=== PATIENT | female | born 1930 | race Caucasian/White ===

== ENCOUNTER 2016-06-07 12:58 | Inpatient (IN) | payer OTHER ==
[~2016-06-07] VITALS: Ht 149.9 cm; Wt 71.4 kg
[~2016-06-07 12:58] MED LIST: ALLO300T2 PO; ASCO-63 PO; ASPI81TA28 PO; ATEN-173 PO; ATOR-26 PO; CALC1CAP36 PO; CHOL100027 PO; CITA20TA4 PO; CLOP1TAB15 PO; FENT25DI2 TD; FERR325T51 PO; FURO80TA63 PO; GABA1CAP5 PO; ISOS60TA25 PO; LEVO50TA PO; LISI10TA PO; MAGN400T6 PO; METO25TA3 PO; OMEP40CA PO; SENNTAB23 PO
[2016-06-07] MEDS ORDERED: ALBUT/IPRATROP 3MG/0.5MG NEB 3 ML VIAL INH STA (13:30)
[2016-06-07] MEDS ORDERED: VNTHFA/IN INH (13:55)
[2016-06-07] MEDS ORDERED: DRGTP12 TD (13:55)
[2016-06-07] MEDS ORDERED: FNTTP25 TD (13:55)
[2016-06-07] MEDS ORDERED: FERR1TAB23 PO (13:55)
--- NOTE | 2016-06-07 14:23 | DIAGNOSTIC IMAGING REPORT ---
CHEST ONE VIEW PORTABLE CLINICAL HISTORY: Sepsis COMPARISON STUDY: 01/17/2015 FINDINGS: The heart is enlarged. There is no failure. There is no focal pulmonary consolidation. No significant pleural effusions are visualized.[ There is minor basilar atelectasis. IMPRESSION: Cardiomegaly. No acute findings. Electronically signed by: Shad Shen M.D. 06/07/2016 2:21 PM Dictated Date/Time: 06/07/2016 2:20 PM
[2016-06-07 14:29] LABS: BASO % 0.1 %; BASO ABS # 0.01 K/uL (0-0.2); COMPLETE YES; EOS % 0.1 %; HEMATOCRIT 28.3 % (37-47); IG% 0.4 %; LYMPH % 5.7 %; LYMPH ABS # 0.95 K/uL (1.2-3.4); MEAN CELL VOLUME 96.9 fL (80-100); MEAN CORPUSCULAR HEMOGLOBIN 32.9 pg (25-34); MEAN CORPUSCULAR HGB CONC 33.9 g/dl (32-36); MEAN PLATELET VOLUME 10.7 fL (7.4-10.4); MONO % 2.8 %; NEUT % 90.9 %; PLATELET COUNT 208 K/uL (130-400); RED BLOOD COUNT 2.92 M/uL (4.2-5.4); WHITE BLOOD COUNT 16.61 K/uL (4.8-10.8)
[2016-06-07 14:38] LABS: INR 1.1 (0.9-1.1); PROTHROMBIN TIME (PATIENT) 11.4 SECONDS (9.0-12.0)
[2016-06-07 14:55] LABS: ALB/GLOB RATIO 0.8 (0.9-2); ALKALINE PHOSPHATASE 75 U/L (45-117); ALT/SGPT 57 U/L (12-78); BLOOD UREA NITROGEN 68 mg/dl (7-18); CALCIUM 8.5 mg/dl (8.5-10.1); CARBON DIOXIDE 28 mmol/L (21-32); CHLORIDE 93 mmol/L (98-107); GLUCOSE 134 mg/dl (70-99); SODIUM 133 mmol/L (136-145)
[2016-06-07] MEDS ORDERED: HEPARIN IV LOW DOSE NO BOLUS STA ×2 (15:29→21:54)
[2016-06-07] MEDS ORDERED: HEPARIN 25000 UNIT/500 ML D5W ONE (15:53)
[2016-06-07] MEDS ORDERED: POLYETHYLENE (MIRALAX) 17 GM PACK PO PRN (16:00)
[2016-06-07] MEDS ORDERED: ONDANSETRON INJ 2 MG/ML 2 ML VIAL IV PRN (16:00)
[2016-06-07] MEDS ORDERED: NITROGLYCERIN 0.4 MG SL PER TAB CHARGE SL PRN (16:00)
[2016-06-07] MEDS ORDERED: OMEP40CA41 PO (16:50)
[2016-06-07] MEDS: FENTANYL PATCH REMOVE & WASTE SCH ×2 (16:59)
[2016-06-07 17:02] VITALS: BP 140/83; PULSE 71; TEMP 36.9; O2SAT 99; Ht 149.9 cm; Wt 71.4 kg
[2016-06-07] MEDS ORDERED: ASPIRIN 81 MG CHEW PO STA (17:12)
--- NOTE | 2016-06-07 17:24 | History and Physical ---
History & Physical Date & Time of Service: Jun 07, 2016 at 16:41 Chief Complaint: cough Primary Care Physician: Tom Pierce D.O. History of Present Illness Source: patient, family (son in law at bedside), clinic records, hospital records This is an 85 year old female with PMH of CAD s/p stents, chronic systolic CHF, chronic oxygen use, HTN, CKD, and other problems listed below who was sent to the ED for productive cough with hypoxia. Pt has been ill for 2 weeks with "deep " cough productive of white sputum. Pt has associated sore throat and mild SOB. Reports improvement after neb treatment in clinic and ER today. Had central non- radiating chest pain several days ago at night which she attributes to coughing. No chest pain today. Pt was seen by Dr. Tom Pierce today and noted to have oxygen sat in 80s and was sent to the ER. Pt is on home oxygen 1 liter during sleep. Pt also has recent ambulatory dysfunction with multiple recent falls. Has chronic right hip pain. No fevers, chills diaphoresis, dizziness, rhinorrhea, ear ache, MAYER, palpitations, abdominal pain, nausea, vomiting, diarrhea, urinary changes, edema, weight gain, calf pain, abnormal bleeding. Had a sick contact with cough at [employer]. No recent med changes, antibiotics, hospitalizations. No hx of lung disease. Pt follows with Marino Calhoun for cardiology. Past Medical/Surgical History Medical Problems: (1) SOPHIA inhibitor intolerance Status: Chronic (2) Anemia Status: Chronic (3) Anemia Status: Chronic (4) CAD (coronary artery disease) Permanent Comment: 04/2005 - SEBAS -> proximal LAD, BMS x 2 -> distal LAD 08/2005 cath - occluded mid LAD stent, 40% ostial left circumflex, total RCA occlusion 12/2014 NSTEMI, cardiac cath at [place]- proximal RCA and LAD occlusions with collateral flow from circumflex, severe left main coronary disease with a 60% proximal calcified lesion and a 40% stenosis distally. The 5 Fr diagnostic catheter dampened upon engagement of the vessel. Attempt to IVUS the left main was notable for the IVUS catheter unable to be inserted past the proximal lesion. The circumflex was described as a large vessel with moderate disease in the proximal segment 50%. Was felt not to be candidate for CABG and PCI felt to be very high risk. Medical management recommended. Status: Chronic (5) Carotid stenosis Status: Chronic (6) Chronic pain Status: Chronic (7) Chronic systolic CHF (congestive heart failure) Status: Chronic (8) CKD (chronic kidney disease), stage III Status: Chronic (9) Dyslipidemia Status: Chronic (10) Gout Status: Chronic (11) H/O echocardiogram Permanent Comment: 2010 - EF 56%, grade I diastolic dysfunction, mild aortic valve sclerosis, mild mitral regurgitation Status: Chronic (12) History of breast cancer Permanent Comment: left lymph node dissection Status: Chronic (13) HTN (hypertension) Status: Chronic (14) Hypothyroidism Status: Chronic (15) NSTEMI (non-ST elevated myocardial infarction) Status: Resolved (16) Spinal stenosis Status: Chronic Surgical Problems: (1) H/O total knee replacement Permanent Comment: BL Status: Chronic (2) History of appendectomy Status: Chronic (3) History of total hip replacement Permanent Comment: Right Status: Chronic (4) Hx of cataract surgery Status: Chronic (5) Status post carotid surgery Permanent Comment: carotid stent placement Status: Chronic Social History Problems: (1) H/O coronary artery balloon dilation Status: Chronic Family History FH: cancer FH: heart disease Hypertension Social History Smoking Status: Never Smoker Alcohol Use: occasionally Marital Status: Housing status: lives with family ( who is demented, daughter, and son- in-law) Occupational Status: retired Immunizations History of Influenza Vaccine: Yes Influenza Vaccine Date: Nov 01, 2014 History of Tetanus Vaccine?: Yes Tetanus Immunization Date: Nov 28, 2011 History of Pneumococcal: Yes Pneumococcal Date: Nov 10, 2014 History of Hepatitis B Vaccine: No Multi-Drug Resistant Organisms History of MDRO: No Allergies Coded Allergies: Iodinated Diagnostic Agents (Verified Allergy, Intermediate, "passed out" & stage three kidney disease, 01/16/15) Codeine (Verified Adverse Reaction, Mild, "KNOCKS ME OUT", 05/16/13) Home Medications Scheduled Allopurinol (Zyloprim), 300 MG PO DAILY Aspirin (Aspirin Ec), 81 MG PO DAILY Atorvastatin (Lipitor), 80 MG PO DAILY Calcitriol (Calcitriol), 1 CAP PO QD Cholecalciferol (Vitamin D 1000 Unit), 2,000 INTER.UNIT PO DAILY Citalopram Hydrobromide (Citalopram Hydrobromide), 30 TAB PO DAILY Clopidogrel (Plavix), 75 MG PO DAILY Fentanyl (Fentanyl), 12 MCG TD CQ72HR Fentanyl (Fentanyl), 25 MCG TD CQ72HR Ferrous Sulfate (Iron), 1 TAB PO QD Furosemide (Lasix), 1 TAB PO BID Gabapentin (Neurontin), 400 MG PO TID Isosorbide Mononitrate Ext Rel (Imdur Ext Rel), 30 MG PO QAM Levothyroxine Sodium (Synthroid), 50 MCG PO DAILY Magnesium Oxide (Mag-Ox), 400 MG PO // Metoprolol Succ (Toprol Xl) (Toprol-Xl), 25 MG PO DAILY Omeprazole (Prilosec), 40 MG PO DAILY Scheduled PRN Albuterol Hfa (Ventolin Hfa), 2 PUFF INH BID PRN for SOB/Wheezing Review of Systems Ten point ROS performed with pertinent positives and negatives noted in HPI. Physical Exam Vital Signs Date Time Temp Pulse Resp B/P Pulse Ox O2 Delivery O2 Flow Rate FiO2 06/07/16 16:22 70 146/88 98 Nasal Cannula 2.0 06/07/16 15:13 70 20 134/76 97 Nasal Cannula 2.0 06/07/16 14:38 68 18 149/77 96 Room Air 06/07/16 13:20 70 06/07/16 13:11 Nasal Cannula 2.0 95 06/07/16 13:04 86 Room Air 06/07/16 13:00 36.9 74 18 130/79 86 Room Air General Appearance: WD/WN, no apparent distress, + obese, + pertinent finding ( pleasant alert 85 year old female, not in distress, and son-in-law at bedside) Head: normocephalic, atraumatic Eyes: normal inspection, PERRL, sclerae normal ENT: normal ENT inspection, hearing grossly normal, TMs normal, pharynx normal , + pertinent finding (no sinus tenderness) Neck: supple, no JVD, trachea midline Respiratory/Chest: no respiratory distress, no accessory muscle use, + rhonchi (diffuse rhonchi), + pertinent finding (no wheezing) Cardiovascular: regular rate, rhythm, no murmur Abdomen/GI: normal bowel sounds, soft Extremities/Musculoskelatal: no calf tenderness, no pedal edema, + pertinent finding (no pain on ROM of right hip) Neurologic/Psych: alert, normal mood/affect, oriented x 3, + pertinent finding (grossly nonfocal) Skin: normal color, warm/dry Diagnostics Laboratory Results Results Past 24 Hours Test 06/07/16 14:05 06/07/16 14:34 06/07/16 15:47 Range/Units White Blood Count 16.61 4.8-10.8 K/uL Red Blood Count 2.92 4.2-5.4 M/uL Hemoglobin 9.6 12.0-16.0 g/dL Hematocrit 28.3 37-47 % Mean Corpuscular Volume 96.9 80-100 fL Mean Corpuscular Hemoglobin 32.9 25-34 pg Mean Corpuscular Hemoglobin Concent 33.9 32-36 g/dl Platelet Count 208 130-400 K/uL Mean Platelet Volume 10.7 7.4-10.4 fL Neutrophils (%) (Auto) 90.9 % Lymphocytes (%) (Auto) 5.7 % Monocytes (%) (Auto) 2.8 % Eosinophils (%) (Auto) 0.1 % Basophils (%) (Auto) 0.1 % Neutrophils # (Auto) 15.11 1.4-6.5 K/uL Lymphocytes # (Auto) 0.95 1.2-3.4 K/uL Monocytes # (Auto) 0.46 0.11-0.59 K/uL Eosinophils # (Auto) 0.02 0-0.5 K/uL Basophils # (Auto) 0.01 0-0.2 K/uL RDW Standard Deviation 53.3 36.4-46.3 fL RDW Coefficient of Variation 14.9 11.5-14.5 % Immature Granulocyte % (Auto) 0.4 % Immature Granulocyte # (Auto) 0.06 0.00-0.02 K/uL Prothrombin Time 11.4 9.0-12.0 SECONDS Prothromb Time International Ratio 1.1 0.9-1.1 Activated Partial Thromboplast Time 27.0 21.0-31.0 SECONDS Partial Thromboplastin Ratio 1.0 Sodium Level 133 136-145 mmol/L Potassium Level 4.1 3.5-5.1 mmol/L Chloride Level 93 98-107 mmol/L Carbon Dioxide Level 28 21-32 mmol/L Anion Gap 12.0 3-11 mmol/L Blood Urea Nitrogen 68 7-18 mg/dl Creatinine 2.50 0.60-1.20 mg/dl Est Creatinine Clear Calc Drug Dose 14.3 ml/min Estimated GFR () 19.6 Estimated GFR (Non- 17.0 BUN/Creatinine Ratio 27.0 10-20 Random Glucose 134 70-99 mg/dl Calcium Level 8.5 8.5-10.1 mg/dl Total Bilirubin 0.4 0.2-1 mg/dl Aspartate Amino Transf (AST/SGOT) 15-37 U/L Alanine Aminotransferase (ALT/SGPT) 57 12-78 U/L Alkaline Phosphatase 75 45-117 U/L Pro-B-Type Natriuretic Peptide > 08079 0-1800 pg/ml Total Protein 6.8 6.4-8.2 gm/dl Albumin 3.0 3.4-5.0 gm/dl Globulin 3.8 2.5-4.0 gm/dl Albumin/Globulin Ratio 0.8 0.9-2 Influenza Type A Antigen Neg for Influ A NEG Influenza Type B Antigen Neg for Influ B NEG Microbiology Results 06/07/16 Blood Culture, Received Pending 06/07/16 Blood Culture, Received Pending Diagnostic Radiology CHEST ONE VIEW PORTABLE CLINICAL HISTORY: Sepsis COMPARISON STUDY: 01/17/2015 FINDINGS: The heart is enlarged. There is no failure. There is no focal pulmonary consolidation. No significant pleural effusions are visualized.[ There is minor basilar atelectasis. IMPRESSION: Cardiomegaly. No acute findings. EKG EKG 13:13- NSR, 69 bpm, RBBB, ST depression in I and aVL, ST elevation in III, T wave inversion in III, aVF, V2-V5 EKG 15:13- NSR, 69 bpm, same findings as earlier EKG Impression Assessment and Plan NSTEMI Known history of CAD s/p stenting; details noted in above PMH Last catheterization at [facility] [place] in [place]- had multivessel disease, was poor candidate for CABG and PCI felt to be very high risk, medical management recommended POC troponin 19.96 EKG- new ST depression in I and aVL, ST elevation in III, T wave inversion in III, aVF, V2-V5 Currently chest pain free Trend serial cardiac enzymes Consult cardiology; ER discussed case with customer service sales consultant flyer builder Dr. Fofana; patient started on heparin drip Give aspirin 325 mg PO stat Continue isosorbide, beta josefa, statin, Plavix SOPHIA-I intolerance as per records PRODUCTIVE COUGH With acute on chronic hypoxia; desaturated to 80s on RA in clinic and ER, (uses 2L HS at home) Possible acute bronchitis CXR- cardiomegaly, no infiltrate Afebrile; + leukocytosis 16K; HR and BP stable Will start on empiric Azithromycin Influenza antigen negative -> check influenza PCR Blood cultures pending Check sputum culture Neb treatments; flutter valve Continue supplemental O2 per protocol GURPREET ON CKD STAGE III Creat is 2.5 from baseline 1.5 Hold furosemide Monitor renal function CHRONIC SYSTOLIC CHF EF 30-34% on TTE Dec 2014 Appears euvolemic CXR- no evidence of failure Furosemide on hold for GURPREET CHRONIC ANEMIA Hg is 9.6; baseline 9's-11's Denies bleeding Monitor H/H HYPERTENSION BP is stable Continue metoprolol CHRONIC PAIN Continue Fentanyl patch and PRN hydrocodone-acetaminophen HYPOTHYROIDISM Continue levothyroxine AMBULATORY DYSFUNCTION Consult PT/ OT DVT PROPHYLAXIS On Heparin drip CODE STATUS Full code per my discussion with the patient DISPOSITION Patient lives at home under the care of daughter and son-in-law (discussed with him at bedside). Follows with Dr. Tom Pierce for primary care and Marino Calhoun PA-C for cardiology. Patient seen in collaboration with Dr. Barragan. Please see her addendum. I have seen and examined the patient and have discussed the case in detail with the provider above. I agree with the assessment and plan as stated. Yung, DO Level of Care Telemetry Resuscitation Status FULL RESUSCITATION VTE Prophylaxis VTE Risk Assessment Done? Y/N: Yes Risk Level: Moderate Given or contraindicated: Other Anticoagulation
[2016-06-07] MEDS ORDERED: AZITHROMYCIN IV 500 MG in DEXTROSE 5% 250ML 250 ML IV SCH (17:30)
[2016-06-07] MEDS: FENTANYL 12 MCG/HR TDSY TD SCH (18:11)
[2016-06-07] MEDS: FENTANYL 25 MCG/HR TDSY TD SCH (18:12)
--- NOTE | 2016-06-07 18:45 | EMERGENCY ROOM VISIT NOTE ---
History Report prepared by Rosa Isela: Jyoti Cole Under the Supervision of: Dr. Yung Arnett M.D. First contact with patient: 13:18 Chief Complaint: CONGESTION Stated Complaint: PNEUMONIA Nursing Triage Summary: Pt states, "I have a bad chest cold." Son in law states seen at Dr. Pierce's ofc and had neb, sat was 80% at the ofc., 90% after neb with deep breathing. Pt reports pain to right side of body. Sx began two weeks ago. History of Present Illness The patient is an 85 year old female who presents to the Emergency Room with complaints of a persistent cough and congestion for the past 2 weeks. Her cough is occasionally productive with yellow sputum. She denies any fevers. The patient admits to some intermittent shortness of breath, especially when her cough gets bad. The patient's family reports she has been falling recently and she admits she feels weak in her right leg. She denies any current chest pain but states she experienced some chest pain last week, which she thinks was from all the coughing she has been doing. She does use Oxygen at home, but cannot remember how much she uses. Her son-in law believes she uses Oxygen mainly when she sleeps or "watches TV". The patient saw her doctor, Dr. Pierce, last week and her Oxygen saturation was 80% before a nebulizer treatment, then 90% after the nebulizer. She saw another doctor this morning at the [facility] weekend clinic and her Oxygen was around 86%, so she had another nebulizer treatment, which provided minimal relief. The patient has a history of heart failure but her family states she is not a candidate for surgery. The patient also denies any recent leg pain or swelling. 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 A total of 10 systems reviewed and were otherwise negative. Past Medical & Surgical Medical Problems: (1) SOPHIA inhibitor intolerance (2) Anemia (3) Anemia (4) CAD (coronary artery disease) (5) Carotid stenosis (6) Chronic pain (7) Chronic systolic CHF (congestive heart failure) (8) CKD (chronic kidney disease), stage III (9) Dyslipidemia (10) Gout (11) H/O echocardiogram (12) History of breast cancer (13) HTN (hypertension) (14) Hypothyroidism (15) NSTEMI (non-ST elevated myocardial infarction) (16) Spinal stenosis Surgical Problems: (1) H/O total knee replacement (2) History of appendectomy (3) History of total hip replacement (4) Hx of cataract surgery (5) Status post carotid surgery Social History Problems: (1) H/O coronary artery balloon dilation Family History FH: cancer FH: heart disease Hypertension Social History Smoking Status: Never Smoker Alcohol Use: none Drug Use: none Marital Status: Housing Status: lives with family Occupation Status: retired Current/Historical Medications Scheduled Allopurinol (Zyloprim), 300 MG PO DAILY Aspirin (Aspirin Ec), 81 MG PO DAILY Atorvastatin (Lipitor), 80 MG PO DAILY Calcitriol (Calcitriol), 1 CAP PO QD Cholecalciferol (Vitamin D 1000 Unit), 2,000 INTER.UNIT PO DAILY Citalopram Hydrobromide (Citalopram Hydrobromide), 30 TAB PO DAILY Clopidogrel (Plavix), 75 MG PO DAILY Fentanyl (Fentanyl), 12 MCG TD CQ72HR Fentanyl (Fentanyl), 25 MCG TD CQ72HR Ferrous Sulfate (Iron), 1 TAB PO QD Furosemide (Lasix), 1 TAB PO BID Gabapentin (Neurontin), 400 MG PO TID Isosorbide Mononitrate Ext Rel (Imdur Ext Rel), 30 MG PO QAM Levothyroxine Sodium (Synthroid), 50 MCG PO DAILY Magnesium Oxide (Mag-Ox), 400 MG PO // Metoprolol Succ (Toprol Xl) (Toprol-Xl), 25 MG PO DAILY Omeprazole (Prilosec), 40 MG PO DAILY Scheduled PRN Albuterol Hfa (Ventolin Hfa), 2 PUFF INH BID PRN for SOB/Wheezing Allergies Coded Allergies: Iodinated Diagnostic Agents (Verified Allergy, Intermediate, "passed out" & stage three kidney disease, 01/16/15) Codeine (Verified Adverse Reaction, Mild, "KNOCKS ME OUT", 05/16/13) Physical Exam Vital Signs Date Time Temp Pulse Resp B/P Pulse Ox O2 Delivery O2 Flow Rate FiO2 06/07/16 15:13 70 20 134/76 97 Nasal Cannula 2.0 06/07/16 14:38 68 18 149/77 96 Room Air 06/07/16 13:20 70 06/07/16 13:11 Nasal Cannula 2.0 95 06/07/16 13:04 86 Room Air 06/07/16 13:00 36.9 74 18 130/79 86 Room Air Physical Exam Constitutional: Vital signs reviewed. Eyes: Pupils are equal round reactive to light. Conjunctiva are noninjected. ENT: Pharynx is clear without erythema or exudate. Mucous membranes are moist. Neck supple without meningeal signs. Respiratory: Diffuse rhonchi. Breath sounds are equal bilaterally. Cardiovascular: Regular rate and rhythm. No rubs or gallops. GI: Soft, nondistended and nontender. Bowel sounds are present. Musculoskeletal: No peripheral edema. No lower extremity tenderness. Integumentary: No cyanosis. Neurological: The patient is awake and alert. Cranial nerves II-XII are intact. Motor is 5 out of 5 all extremities. Sensation is intact to light touch all extremities. Normal speech. Psychiatric: Normal affect. Medical Decision & Procedures ER Provider Diagnostic Interpretation: This X-Ray was reviewed and interpreted by myself and the radiologist. CHEST ONE VIEW PORTABLE CLINICAL HISTORY: Sepsis COMPARISON STUDY: 01/17/2015 FINDINGS: The heart is enlarged. There is no failure. There is no focal pulmonary consolidation. No significant pleural effusions are visualized.[ There is minor basilar atelectasis. IMPRESSION: Cardiomegaly. No acute findings. Electronically signed by: Shad Shen M.D. 06/07/2016 2:21 PM Laboratory Results 06/07/16 14:05 Red Blood Count 2.92, Mean Corpuscular Volume 96.9, Mean Corpuscular Hemoglobin 32.9, Mean Corpuscular Hemoglobin Concent 33.9, Mean Platelet Volume 10.7, Neutrophils (%) (Auto) 90.9, Lymphocytes (%) (Auto) 5.7, Monocytes (%) (Auto) 2.8, Eosinophils (%) (Auto) 0.1, Basophils (%) (Auto) 0.1, Neutrophils # (Auto) 15.11, Lymphocytes # (Auto) 0.95, Monocytes # (Auto) 0.46, Eosinophils # (Auto) 0.02, Basophils # (Auto) 0.01 06/07/16 14:05 06/07/16 15:47 Test 06/07/16 14:05 06/07/16 14:34 White Blood Count 16.61 K/uL (4.8-10.8) Red Blood Count 2.92 M/uL (4.2-5.4) Hemoglobin 9.6 g/dL (12.0-16.0) Hematocrit 28.3 % (37-47) Mean Corpuscular Volume 96.9 fL (80-100) Mean Corpuscular Hemoglobin 32.9 pg (25-34) Mean Corpuscular Hemoglobin Concent 33.9 g/dl (32-36) Platelet Count 208 K/uL (130-400) Mean Platelet Volume 10.7 fL (7.4-10.4) Neutrophils (%) (Auto) 90.9 % Lymphocytes (%) (Auto) 5.7 % Monocytes (%) (Auto) 2.8 % Eosinophils (%) (Auto) 0.1 % Basophils (%) (Auto) 0.1 % Neutrophils # (Auto) 15.11 K/uL (1.4-6.5) Lymphocytes # (Auto) 0.95 K/uL (1.2-3.4) Monocytes # (Auto) 0.46 K/uL (0.11-0.59) Eosinophils # (Auto) 0.02 K/uL (0-0.5) Basophils # (Auto) 0.01 K/uL (0-0.2) RDW Standard Deviation 53.3 fL (36.4-46.3) RDW Coefficient of Variation 14.9 % (11.5-14.5) Immature Granulocyte % (Auto) 0.4 % Immature Granulocyte # (Auto) 0.06 K/uL (0.00-0.02) Prothrombin Time 11.4 SECONDS (9.0-12.0) Prothromb Time International Ratio 1.1 (0.9-1.1) Activated Partial Thromboplast Time 27.0 SECONDS (21.0-31.0) Partial Thromboplastin Ratio 1.0 Anion Gap 12.0 mmol/L (3-11) Est Creatinine Clear Calc Drug Dose 14.3 ml/min Estimated GFR () 19.6 Estimated GFR (Non- 17.0 BUN/Creatinine Ratio 27.0 (10-20) Calcium Level 8.5 mg/dl (8.5-10.1) Total Bilirubin 0.4 mg/dl (0.2-1) Aspartate Amino Transf (AST/SGOT) U/L (15-37) Alanine Aminotransferase (ALT/SGPT) 57 U/L (12-78) Alkaline Phosphatase 75 U/L (45-117) Pro-B-Type Natriuretic Peptide > 55104 pg/ml (0-1800) Total Protein 6.8 gm/dl (6.4-8.2) Albumin 3.0 gm/dl (3.4-5.0) Globulin 3.8 gm/dl (2.5-4.0) Albumin/Globulin Ratio 0.8 (0.9-2) Influenza Type A Antigen Neg for Influ A (NEG) Influenza Type B Antigen Neg for Influ B (NEG) Laboratory results as reviewed by me. Medications Administered Medications (Trade) Dose Ordered Sig/Jeferson Route Start Time Stop Time Status Last Admin Dose Admin Albuterol/ Ipratropium (Duoneb) 3 ml NOW STAT INH 06/07/16 13:30 06/07/16 13:32 DC 06/07/16 14:37 3 ML Heparin Sodium/ Dextrose (Heparin 25,000 Unit/500ml D5W) 25,000 unit STK-MED ONCE .ROUTE 06/07/16 15:53 06/07/16 15:54 DC 06/07/16 16:00 25,000 UNIT ECG Indication: SOB/dyspnea Rate (beats per minute): 69 Rhythm: normal sinus (normal sinus rhythm) Findings: RBBB, ST depression (ST depressions in lead 1 and AVL), T-wave inversion (T-wave inversions), ST elevation (Slight ST elevation in lead 3 only) Change: 2nd EKG performed on June 07, 2016: Indication: Elevated Troponin. Normal sinus rhythm, rate of 69, persistent RBBB with T-wave inversions from V1 to V4. ST depressions in lead [address] elevation in lead 3 only, no change from earlier EKG. ED Course 1320: The patient was evaluated in room B11. A complete history and physical exam was performed. 1330: DuoNeb 3 ml INH. 1510: I was informed by a nurse that the patients POC Troponin is 19. 1515: I reevaluated the patient. She still has some rhonchi but says she feels much better. She denies any shortness of breath. She denies any chest pain except for the pain she experienced 1 week ago. I discussed her test results with her. I also discussed my recommendation she remain in the hospital for further evaluation and management and she verbalized complete understanding and agreement. 1524: I discussed the patients case with [facility]. He does not think it is likely Acute Coronary Syndrome, but he would recommend placing her on a low dose of Heparin. 1529: Heparin Sodium/Dextrose 1 ea NA. 1531: I discussed the patients case with Syl[facility] Hospitalist. The patient will be further evaluated. Medical Decision This is an 85-year-old female who presents with dyspnea, hypoxia and cough. Differential diagnosis includes sepsis, pneumonia, bronchitis, pleural effusion , CHF. I did perform a limited focused review of portions of the patient's old chart on the electronic medical record. The patient has had no recent pertinent visits to this hospital. I did evaluate the patient as noted above. IV access was established. The patient was placed on a continuous cardiac technician. The patient was given supplemental oxygen as her O2 saturation was in the 80s on room air. Her son-in -law states that she uses oxygen mostly at night and when she is watching TV. I did treat her with a DuoNeb. I did order and personally review the patient's 12 -lead EKG and chest x-ray as described above. Her chest x-ray demonstrates cardiomegaly without infiltrate or CHF. Her twelve-lead EKG is concerning and demonstrates [address] elevation in 1 isolated lead in lead 3. She also has T- wave inversions in the precordial leads with ST depressions in the high lateral leads. She denies having any chest discomfort at this time. She is mostly concerned about her cough. I did order and review the patient's blood work as noted in the electronic medical record. Her POC troponin is over 19. I did reassess the patient. She states she feels much better after the DuoNeb. She denies having any chest discomfort or shortness of breath at this time. I did repeat a twelve-lead EKG which showed similar findings as her original one. I did discuss the case with Dr. Fofana of cardiology. He recommended placing patient on IV heparin low-dose without bolus. I did order IV heparin after discussing this with the patient and her family. She is currently not on any blood thinners except for aspirin according to her son-in-law. She has no prior history of GI bleed or intracranial hemorrhage. The patient was started on a heparin drip. I did discuss the case with the hospitalist and rn case manager hospice for admission. Consults Time Called: 1520 Consulting Physician: [facility] Returned Call: 1524 I discussed the patients case with [facility]. He does not think it is likely Acute Coronary Syndrome, but he would recommend placing her on a low dose of Heparin. Additional Consults: Time Called: 1530 Consulted Physician: [facility] Hospitalist Returned Call: 1531 Additional Comments: I discussed the patients case with [facility] Hospitalist. The patient will be further evaluated. Impression Primary Impression: NSTEMI (non-ST elevated myocardial infarction) Additional Impressions: Acute renal failure Hypoxia Anemia Critical Care I have personally spent 35 minutes of critical care time in the direct management of this patient. This includes bedside care, interpretation of diagnostic studies, and testing, discussion with consultants, patient, and family members, and other required patient management activities. This 35 minutes is in excess of all separately billable procedures. Scribe Attestation The scribe's documentation has been prepared under my direct and personally reviewed by me in its entirety. I confirm that the note above accurately reflects all work, treatment, procedures, and medical decision making performed by me. Departure Information Dispostion Being Evaluated By Hospitalist Gardenia Gage M.D. (PCP) Patient Instructions My [facility] Problem Qualifiers Additional Impressions: Acute renal failure Acute renal failure type: unspecified Qualified Codes: N17.9 - Acute kidney failure, unspecified Anemia Anemia type: unspecified type Qualified Codes: D64.9 - Anemia, unspecified
[2016-06-07] MEDS: ALBUT/IPRATROP 3MG/0.5MG NEB 3 ML VIAL INH SCH (19:29)
[2016-06-07 19:33] VITALS: PULSE 72; O2SAT 96
[2016-06-07] MEDS: CALCITRIOL 0.25 MCG CAP PO SCH (19:58)
[2016-06-07 21:13] LABS: CKMB/CK RATIO 3.5 (0-3.0)
[2016-06-07 22:17] LABS: PARTIAL THROMBOPLASTIN RATIO 1.5
--- NOTE | 2016-06-07 22:19 | Progress Note ---
Progress Note Date of Service Jun 07, 2016. 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 : pt admitted earlier with cough /respiratory symptom found to have NSTEMI EKG T wave inversion in ant and lateral leads ( new change ) initial troponin POC elevated 19 , repeat cardiac markers at 20: 34 Cristian 23 /CKMB 17/CK 484 pt evaluated at bedside -no complain of chest heaviness or SOB complains of non productive cough only P/E: gen ; comfortable , very pleasant HEENT : sclera non icteric HT; regular S1/s2 , no JVD , no lower ext edema Lungs: diminished , no obvious rales or wheeze noted Neuro: AAO x3, no focal neurological deficit A/P: NSTEMI : on IV heparin wt based protocol already pt remains asymptomatic , no CP , SOB , or Orthopnea on Aspirin , Plavix , Imdur , beta josefa , stain ECHO ordered in AM to assess new all motion abnormality stat EKG done -NSR , RBBB with T wave inversion on V1 -V 6 , unchanged form admission EKG QTc 520 will D/c Zithromax ( for bronchitis ) changed Abx to Doxycycline daily EKG ordered follow Mg /K level ProBNP elevated > 70700 no evidence of vol overload in Cxray /clinically Lasix on hold for GURPREET ( Cr 2.5 ) monitor clinically pt has hx of CAD : 12/2014 NSTEMI, cardiac cath at [place]- proximal RCA and LAD occlusions with collateral flow from circumflex, severe left main coronary disease with a 60% proximal calcified lesion and a 40% stenosis distally. The 5 Fr diagnostic catheter dampened upon engagement of the vessel. Attempt to IVUS the left main was notable for the IVUS catheter unable to be inserted past the proximal lesion. The circumflex was described as a large vessel with moderate disease in the proximal segment 50%. Was felt not to be candidate for CABG and PCI felt to be very high risk. Medical management recommended. Case D/w Dr Fofana -manager collection licensed optician in agreement with above medical management no urgent cardiac intervention needed -no chest pain or cardiac symptom; GURPREET / cont medical management
[2016-06-07 22:33] LABS: INFLUENZA A PCR Neg for Influ A (NEG); INFLUENZA B PCR Neg for Influ B (NEG)
[2016-06-07] MEDS ORDERED: HEPARIN IV BOLUS 4,000 UNIT in SYRINGE 0 ML IV STA (22:37)
[2016-06-07] MEDS: HEPARIN 25,000 UNIT/500ML D5W 500 ML IV PRN (23:10)
[2016-06-07 23:15] VITALS: BP 125/69; PULSE 72; TEMP 36.8; O2SAT 95
[2016-06-07] MEDS: DOXYCYCLINE IV 100 MG in DEXTROSE 5% 100ML 100 ML IV SCH (23:50)
[2016-06-08] VITALS (10 sets, daily range): BP systolic 104–155; BP diastolic 59–80; PULSE 68–84; TEMP 36.6–37; O2SAT 90–98
[2016-06-08] MEDS: CHECK FENTANYL PATCH PLACEMENT SCH ×6 (00:09→16:00)
[2016-06-08 03:11] LABS: CKMB/CK RATIO 3.4 (0-3.0)
[2016-06-08 05:09] LABS: HEMATOCRIT 27.4 % (37-47); MEAN CELL VOLUME 95.8 fL (80-100); MEAN CORPUSCULAR HEMOGLOBIN 31.5 pg (25-34); MEAN CORPUSCULAR HGB CONC 32.8 g/dl (32-36); PLATELET COUNT 202 K/uL (130-400); RED BLOOD COUNT 2.86 M/uL (4.2-5.4); WHITE BLOOD COUNT 12.75 K/uL (4.8-10.8)
[2016-06-08 05:25] LABS: BUN/CREATININE RATIO 29.1 (10-20); CALCIUM 8.6 mg/dl (8.5-10.1); MAGNESIUM 2.5 mg/dl (1.8-2.4); PARTIAL THROMBOPLASTIN RATIO 2.6; POTASSIUM 4.6 mmol/L (3.5-5.1)
[2016-06-08 05:35] LABS: CHOLESTEROL/HDL RATIO 2.4
[2016-06-08] MEDS: LEVOTHYROXINE 50 MCG TAB PO SCH (06:00)
[2016-06-08] MEDS: ALBUT/IPRATROP 3MG/0.5MG NEB 3 ML VIAL INH SCH ×4 (07:17→19:42)
--- NOTE | 2016-06-08 07:41 | DIAGNOSTIC IMAGING REPORT ---
CHEST ONE VIEW PORTABLE CLINICAL HISTORY: Shortness of breath and cough. COMPARISON STUDY: Chest radiograph June 07, 2016. FINDINGS: Moderate cardiomegaly is unchanged. There is no evidence for pulmonary edema. No pneumothorax or pleural effusion is identified. There may be minimal right midlung opacity. IMPRESSION: 1. Moderate cardiomegaly without evidence of pulmonary edema. 2. Mild irregular right midlung opacity which likely reflects normal structures or atelectasis. A mild infectious process could appear similar. Radiographic follow-up is recommended. Electronically signed by: John Bailey M.D. 06/08/2016 7:38 AM Dictated Date/Time: 06/08/2016 7:37 AM
--- NOTE | 2016-06-08 09:12 | ECHOCARDIOGRAM REPORT ---
*NOTICE TO RECEIVING LIBERTARIAN AGENCY This information is strictly Confidential and protected under [place] law. [place] law prohibits you from making any further disclosure of this information unless further disclosure is expressly permitted by the written consent of the person to whom it pertains or is authorized by law. A general authorization for the release of medical or other information is not sufficient for this purpose. Hospital accepts no responsibility if the information is made available to any other person, INCLUDING THE PATIENT. Interpretation Summary * Name: MORELIA QUIROGA Study Date: 06/08/2016 06:34 AM BP: 138/80 mmHg * Patient Location: .2E\S\E207\S\1 HR: 76 * : 1930 (M/d/yyyy) Gender: Female Height: 59 in * Age: 85 yrs Ethnicity: [place] Weight: 164 lb * Ordering Physician: Chasity Kay * Referring Physician: Self, Referred * Performed By: Lyndsey Wilkins RDCS * * Reason For Study: AMI * BSA: 1.7 m2 * History: AMI * -- Conclusions -- * The left ventricle is normal in size. * There is mild concentric left ventricular hypertrophy. * There are extensive wall motion abnormalties * There is a large sized apical, septal, anteroseptal infarct. The inferior, and posterior wall motion have diffuse hypokinesis * Left ventricular systolic function is moderately reduced. * Ejection Fraction = 30-35%. * Aortic valve sclerosis mild, without significant aortic valvular stenosis. * There is mild mitral regurgitation. * There is mild tricuspid regurgitation. * Doppler findings do not suggest pulmonary hypertension. * Compared to prior study of 01/17/2015 there is no significant change Procedure Details * A complete two-dimensional transthoracic echocardiogram was performed (2D, M-mode, Doppler and color flow Doppler). Left Ventricle * The left ventricle is normal in size. * There is mild concentric left ventricular hypertrophy. * Left ventricular systolic function is moderately reduced. * Ejection Fraction = 30-35%. Right Ventricle * The right ventricle is normal in size and function. Atria * The left atrial size is normal. * Right atrial size is normal. * No ASD detected; PFO is not assessed. Mitral Valve * There is mild mitral annular calcification. * There is no mitral valve stenosis. * There is mild mitral regurgitation. Tricuspid Valve * The tricuspid valve anatomy is normal. * There is no tricuspid stenosis. * There is mild tricuspid regurgitation. * Doppler findings do not suggest pulmonary hypertension. Aortic Valve * The aortic valve is trileaflet. * Aortic valve sclerosis mild, without significant aortic valvular stenosis. * No aortic regurgitation is present. Pulmonic Valve * The pulmonic valve is not well visualized. Great Vessels * The aortic root is normal size. Pericardium/Pleural * There is no pericardial effusion. Great Vessels * Normal inferior vena cava diameter and respiratory variation suggests normal central venous pressure. Left Ventricular Diastolic Function * Grade I diastolic dysfunction, (abnormal relaxation pattern). MMode 2D Measurements and Calculations IVSd 1.1 cm IVSs 1.2 cm LVIDd 4.5 cm LVIDs 3.6 cm LVPWd 1.5 cm LVPWs 1.7 cm IVS/LVPW 0.71 FS 18.6 % EDV(Teich) 90.1 ml ESV(Teich) 55.3 ml EF(Teich) 38.7 % EDV(cubed) 88.2 ml ESV(cubed) 47.5 ml EF(cubed) 46.1 % % IVS thick 14.6 % % LVPW thick 15.9 % LV mass(C)d 216.6 grams LV mass(C)dI 127.8 grams/m\S\2 LV mass(C)s 200.1 grams LV mass(C)sI 118.1 grams/m\S\2 SV(Teich) 34.9 ml SI(Teich) 20.6 ml/m\S\2 SV(cubed) 40.7 ml SI(cubed) 24.0 ml/m\S\2 Ao root diam 3.0 cm Ao root area 7.0 cm\S\2 LA dimension 4.1 cm LA/Ao 1.4 LVAd ap4 29.9 cm\S\2 LVLd ap4 7.3 cm EDV(MOD-sp4) 104.5 ml EDV(sp4-el) 104.8 ml LVAs ap4 21.7 cm\S\2 LVLs ap4 6.2 cm ESV(MOD-sp4) 64.2 ml ESV(sp4-el) 64.8 ml EF(MOD-sp4) 38.6 % EF(sp4-el) 38.2 % LVAd ap2 20.5 cm\S\2 LVLd ap2 6.8 cm EDV(MOD-sp2) 52.4 ml EDV(sp2-el) 52.5 ml LVAs ap2 15.8 cm\S\2 LVLs ap2 6.4 cm ESV(MOD-sp2) 32.0 ml ESV(sp2-el) 33.0 ml EF(MOD-sp2) 39.0 % EF(sp2-el) 37.1 % LVLd %diff -7.16 % EDV(MOD-bp) 77.1 ml LVLs %diff 3.8 % ESV(MOD-bp) 46.5 ml EF(MOD-bp) 39.7 % SV(MOD-sp4) 40.3 ml SI(MOD-sp4) 23.8 ml/m\S\2 SV(MOD-sp2) 20.4 ml SI(MOD-sp2) 12.1 ml/m\S\2 SV(MOD-bp) 30.6 ml SI(MOD-bp) 18.0 ml/m\S\2 SV(sp4-el) 40.0 ml SI(sp4-el) 23.6 ml/m\S\2 SV(sp2-el) 19.5 ml SI(sp2-el) 11.5 ml/m\S\2 Doppler Measurements and Calculations MV E max gabriella 59.7 cm/sec MV A max gabriella 99.9 cm/sec MV E/A 0.60 MV dec time 0.18 sec Ao V2 max 112.9 cm/sec Ao max PG 5.1 mmHg Ao max PG (full) 1.4 mmHg LV V1 max PG 3.7 mmHg LV V1 max 95.6 cm/sec TR max gabriella 231.6 cm/sec
[2016-06-08] MEDS: ISOSORBIDE MONONITRATE 30 MG TABCR PO SCH (09:44)
[2016-06-08] MEDS: DOXYCYCLINE IV 100 MG in DEXTROSE 5% 100ML 100 ML IV SCH (09:44)
[2016-06-08] MEDS: METOPROLOL SUCC 25MG EXT REL TAB PO SCH (09:45)
[2016-06-08] MEDS: PANTOprazole SOD 40 MG TAB PO SCH (09:45)
[2016-06-08] MEDS: CLOPIDOGREL BISULFATE 75 MG TAB PO SCH (09:45)
[2016-06-08] MEDS: ASPIRIN 81 MG ECTAB PO SCH (09:45)
[2016-06-08] MEDS: ALLOPURINOL 100 MG TAB PO SCH (09:46)
[2016-06-08] MEDS: CALCITRIOL 0.25 MCG CAP PO SCH (09:46)
[2016-06-08] MEDS: FERROUS SULFATE 325 MG TAB PO SCH (09:46)
[2016-06-08] MEDS: CHOLECALCIFEROL 1000 INTER.UNIT TAB PO SCH (09:46)
[2016-06-08] MEDS: CITALOPRAM 20 MG TAB PO SCH (09:48)
[2016-06-08] MEDS: ATORVASTATIN 40 MG TAB PO SCH (09:48)
[2016-06-08] MEDS: GABAPENTIN 400 MG CAP PO SCH (09:49)
[2016-06-08] MEDS: CEFTRIAXONE SOD INJ 1 GM in DEXTROSE 5% ADD-VANTAGE 50ML 50 ML IV SCH (14:23)
--- NOTE | 2016-06-08 16:00 | Progress Note ---
Internal Med Progress Note Date of Service: Jun 08, 2016. Provider Documentation: SUBJECTIVE: Patient is lying in the bed and is alert/awake. Not in any distress. C/O Some right sided chest pressure. No diaphoresis. Mild intermittent nausea with no vomiting. OBJECTIVE: Vital Signs-as noted below Examination: General Appearance: WD/WN, Pleasant alert 85 year old female, not in acute distress Head: normocephalic, atraumatic Eyes: normal inspection, PERRL, sclerae normal ENT: normal ENT inspection, hearing grossly normal, TMs normal, pharynx normal , no sinus tenderness Neck: supple, no JVD, trachea midline Respiratory/Chest: no respiratory distress, no accessory muscle use, Scattered rhonchi javier at lung mendoza B/L Cardiovascular: regular rate, rhythm, no murmur Abdomen/GI: normal bowel sounds, soft Extremities/Musculoskeletal: no calf tenderness, no pedal edema, no pain on ROM of right hip Neurologic/Psych: alert, normal mood/affect, oriented x 3, grossly nonfocal Skin: normal color, warm/dry Lab data as noted below. ASSESSMENT & PLAN: Chest X-Ray (06/08/2016) IMPRESSION: 1. Moderate cardiomegaly without evidence of pulmonary edema. 2. Mild irregular right midlung opacity which likely reflects normal structures or atelectasis. A mild infectious process could appear similar. Radiographic follow-up is recommended. NSTEMI: Clinically & hemodynamically stable. Known history of CAD s/p stenting; Currently chest pain free Last catheterization at [facility] [place]- had multivessel disease, was poor candidate for CABG and PCI felt to be very high risk, medical management recommended -EKG- new ST depression in I and aVL, ST elevation in III, T wave inversion in III, aVF, V2-V5 -Serial Troponin show 22.4 --> 23.0 --> 16.1. -Reviewed Cardiology consult. Thanks for input -Continue Aspirin, Isosorbide, beta josefa, statin, Plavix -SOPHIA-I intolerance as per records Likely Right Sided Pneumonia: With acute on chronic hypoxia; desaturated to 80s on RA in clinic and ER, (uses 2L HS at home) Afebrile; + leukocytosis 16K; HR and BP stable -Continue Rocephin (Day # 1) & Doxycycline (Day # 2) -Influenza antigen & influenza PCR are negative -Blood cultures negative so far -Continue supplemental O2 per protocol -Nebulizer treatment as per need, GURPREET On CKD Stage III: Creat is 2.5 from baseline 1.5 -Hold furosemide -Monitoring renal function -Avoid any Nephrotoxin Chronic Systolic CHF: Clinically stable. EF 30-34% on TTE Dec 2014.Appears euvolemic -CXR- no evidence of failure -Furosemide on hold for GURPREET Chronic Anemia: Hg is 9.6; baseline 9's-11's. Denies bleeding -Monitoring H/H History HTN: BP is stable -Continue metoprolol Chronic Pain: Continue Fentanyl patch and PRN hydrocodone-acetaminophen Hypothyroidism: Continue levothyroxine Ambulatory Dysfunction: Consult PT/ OT DVT Prophylaxis: On Heparin drip Code Status: Full code per discussion with the patient on admission. Disposition: Discharge once is clinically stable. Patient lives at home under the care of daughter and son-in-law (discussed with him at bedside). Follows with Dr. Tom Pierce for primary care and Marino Calhoun PA-C for cardiology. Vital Signs: Date Time Temp Pulse Resp B/P Pulse Ox O2 Delivery O2 Flow Rate FiO2 06/08/16 15:31 68 18 94 Nasal Cannula 2.0 06/08/16 14:55 36.9 69 18 104/59 96 Nasal Cannula 2.0 06/08/16 12:41 36.9 73 18 108/60 96 Nasal Cannula 3.0 06/08/16 11:15 70 18 97 Nasal Cannula 2.0 06/08/16 07:20 76 18 98 Nasal Cannula 2.0 06/08/16 07:09 36.7 76 18 138/80 90 Room Air 06/08/16 04:10 36.9 68 16 155/70 96 Nasal Cannula 2.0 06/08/16 04:00 Nasal Cannula 2.0 06/08/16 00:00 Nasal Cannula 2.0 06/07/16 23:15 36.8 72 16 125/69 95 Nasal Cannula 2.0 06/07/16 20:00 Nasal Cannula 2.0 06/07/16 19:33 72 18 96 Nasal Cannula 2.0 06/07/16 17:02 36.9 71 16 140/83 99 Nasal Cannula 2.0 06/07/16 16:22 70 146/88 98 Nasal Cannula 2.0 Lab Results: Results Past 24 Hours Test 06/07/16 20:15 06/07/16 20:34 06/07/16 21:55 06/08/16 02:11 Range/Units Influenza Type A (RT-PCR) Neg for Influ A NEG Influenza Type B (RT-PCR) Neg for Influ B NEG Total Creatine Kinase 484 414 26-192 U/L Creatine Kinase MB 17.0 14.1 0.5-3.6 ng/ml Creatine Kinase MB Ratio 3.5 3.4 0-3.0 Troponin I 23.000 22.400 0-0.045 ng/ml Activated Partial Thromboplast Time 37.8 21.0-31.0 SECONDS Partial Thromboplastin Ratio 1.5 Test 06/08/16 04:50 06/08/16 14:14 Range/Units White Blood Count 12.75 4.8-10.8 K/uL Red Blood Count 2.86 4.2-5.4 M/uL Hemoglobin 9.0 12.0-16.0 g/dL Hematocrit 27.4 37-47 % Mean Corpuscular Volume 95.8 80-100 fL Mean Corpuscular Hemoglobin 31.5 25-34 pg Mean Corpuscular Hemoglobin Concent 32.8 32-36 g/dl RDW Standard Deviation 52.0 36.4-46.3 fL RDW Coefficient of Variation 14.8 11.5-14.5 % Platelet Count 202 130-400 K/uL Mean Platelet Volume 10.0 7.4-10.4 fL Nucleated RBC Absolute Count (auto) 0.03 0-0 K/uL Nucleated Red Blood Cells % 0.3 % Activated Partial Thromboplast Time 68.5 21.0-31.0 SECONDS Partial Thromboplastin Ratio 2.6 Sodium Level 135 136-145 mmol/L Potassium Level 4.6 3.5-5.1 mmol/L Chloride Level 95 98-107 mmol/L Carbon Dioxide Level 34 21-32 mmol/L Anion Gap 6.0 3-11 mmol/L Blood Urea Nitrogen 58 7-18 mg/dl Creatinine 2.00 0.60-1.20 mg/dl Est Creatinine Clear Calc Drug Dose 18.1 ml/min Estimated GFR () 25.7 Estimated GFR (Non- 22.2 BUN/Creatinine Ratio 29.1 10-20 Random Glucose 98 70-99 mg/dl Calcium Level 8.6 8.5-10.1 mg/dl Magnesium Level 2.5 1.8-2.4 mg/dl Triglycerides Level 102 0-150 mg/dl Cholesterol Level 112 0-200 mg/dl HDL Cholesterol 46 mg/dl LDL Cholesterol, Calculated 46 mg/dl VLDL Cholesterol, Calculated 20 mg/dl Cholesterol/HDL Ratio 2.4 Total Creatine Kinase 280 26-192 U/L Troponin I 16.100 0-0.045 ng/ml
--- NOTE | 2016-06-08 17:36 | CARDIOLOGY CONSULTATION ---
DATE OF CONSULTATION: 06/08/2016 REFERRING: Dr. Kay. PRIMARY CARE PHYSICIAN: Dr. Tom Pierce. HISTORY OF PRESENT ILLNESS: The patient is an 85-year-old female with a history of diffuse vascular disease. Her cardiac history is notable for initial coronary intervention, for abnormal stress testing in 2005, undergoing intervention of the left anterior descending with deployed stent in the distal left main due to procedural issues. The patient has undergone subsequent followup cardiac catheterizations with most recent cardiac catheterization performed in December 2014 after presenting with non-ST segment elevation myocardial infarction. Study at that time demonstrated severe diffuse coronary artery disease, poorly amenable to coronary intervention or surgical revascularization with ultimate plans for management medically. Specifically, cardiac catheterization in December 2014 demonstrated proximal right coronary artery and left anterior descending occlusions with collateral flow from the circumflex. Severe distal left main disease, 60% narrowing proximally and 40% distally. Her underlying medical issues include a history of ischemic cardiomyopathy, atherosclerotic carotid disease status post left carotid artery stenting with bilateral stenosis, mild mitral insufficiency, hypertension, dyslipidemia, chronic renal insufficiency. The patient is admitted to this hospitalization, noting approximately 3 weeks history of worsening cough, hoarseness and wheeze consistent with acute bronchitic complaints. She was seen in the outpatient setting on 05/31/2016 with deep chest congestion and cough, nonproductive. She was managed without antibiotic therapy though presented having continued complaints with worsening cough, pleuritic pain and chest wall discomfort. Initial laboratory studies however were notable for elevated troponin of 23. She noted no anginal symptoms or signs or symptoms of fluid retention or edema. Renal insufficiency had worsened from baseline to a creatinine of 2.5 on presentation. Appetite had diminished. She noted no overt fevers, noted no diaphoresis. No acute weight loss or gain, though her appetite has been poor over the past 1-2 weeks. She notes no melena, hematochezia, dysuria or hematuria. ALLERGIES: NOTED TO BE CODEINE, IODINATED CONTRAST. MEDICATIONS: Prior to hospitalization were albuterol inhaler, allopurinol 300 mg p.o. q. day, aspirin 81 mg per day, atorvastatin 80 mg p.o. q. day, vitamin D 2000 units q. day, citalopram 20 mg q. day, Plavix 75 mg p.o. q. day, fentanyl patch, ferrous sulfate 325 mg q. day, furosemide 80 mg b.i.d., gabapentin 400 mg t.i.d., Imdur 30 mg p.o. q. day, levothyroxine 50 mcg p.o. q. day, Mag-Ox 400 mg Thursday, Thursday and Thursday, Toprol-XL 25 mg p.o. q. day, omeprazole 40 mg p.o. q. day. PAST SURGICAL HISTORY: Notable for prior bilateral total knee replacements, appendectomy, right hip replacement, cataract extraction, left carotid artery stenting. FAMILY HISTORY: Positive for heart disease. SOCIAL HISTORY: The patient resides with daughter. The patient is a nonsmoker, rare alcohol user. PHYSICAL EXAMINATION: VITAL SIGNS: Heart rate 76, blood pressure is 138/80, O2 saturations 98% on 2 liters nasal cannula. LABORATORY STUDIES: Troponin as described. Initial 23, second 22.4. Chest x-ray reveals right mid lung opacity consistent with pneumonia. Sodium is 135, potassium is 4.6, chloride is 95, BUN is 58, creatinine is 2.0. The patient is anticoagulated with heparin. PTT 68.5. EKG reveals sinus rhythm with right bundle branch block, septal Q-waves. IMPRESSION: Complex 85-year-old female with history of diffuse vascular disease and severe coronary disease by prior cardiac catheterization, last performed in December 2014, poorly amenable to coronary intervention or surgical revascularization. She carries an underlying history of ischemic cardiomyopathy, EF 35%. Presents now with acute tracheobronchitis, probable pneumonia with elevated troponin secondary to acute stressors of illness. Echocardiogram today demonstrates similar wall motion abnormalities compared to prior study in 2015. Notes mildly severe LV dysfunction, EF 35%, extensive anteroseptal and apical infarct corresponding to patient's known LAD occlusion and RCA occlusion. RECOMMENDATIONS: Continue patient's cardiac medications as prescribed as an outpatient with increasing nitrate dosing to 60 mg per day, given renal insufficiency. I will initially hold furosemide. Would aggressively treat patient's underlying pneumonia and tracheobronchitis as an exacerbating cause of the patient's cardiac ischemia. The patient's plans for cardiac management as previously designed will be medical. Anticoagulation will be continued for at least 48 hours. The patient is at high procedure risk, currently asymptomatic from a cardiac standpoint. History of dye allergy and current renal insufficiency would complicate any further investigations though not warranted by history and we will follow patient in the hospital. SILVESTRE
[2016-06-08] MEDS: DOXYCYCLINE HYCLATE 100 MG CAP PO SCH (21:12)
[2016-06-09] VITALS (10 sets, daily range): BP systolic 134–149; BP diastolic 65–84; PULSE 73–96; TEMP 36.7–37.1; O2SAT 90–100
[2016-06-09] MEDS: CHECK FENTANYL PATCH PLACEMENT SCH ×8 (00:50→23:59)
[2016-06-09] MEDS ORDERED: NURSING VERBAL MED ORDER ONE (03:30)
[2016-06-09] MEDS: GUAIFENESIN SUGAR FREE 100 MG/5 ML UDC PO PRN (03:39)
[2016-06-09 04:53] LABS: HEMATOCRIT 28.1 % (37-47); MEAN CELL VOLUME 96.6 fL (80-100); MEAN CORPUSCULAR HGB CONC 33.1 g/dl (32-36); MEAN PLATELET VOLUME 9.7 fL (7.4-10.4); PLATELET COUNT 223 K/uL (130-400); RED BLOOD COUNT 2.91 M/uL (4.2-5.4); WHITE BLOOD COUNT 11.23 K/uL (4.8-10.8)
[2016-06-09 05:04] LABS: PARTIAL THROMBOPLASTIN RATIO 1.6
[2016-06-09 05:28] LABS: ALB/GLOB RATIO 0.8 (0.9-2); BUN/CREATININE RATIO 31.9 (10-20); CALCIUM 8.8 mg/dl (8.5-10.1); CREATININE 1.4 mg/dl (0.60-1.20); POTASSIUM 3.9 mmol/L (3.5-5.1)
[2016-06-09] MEDS ORDERED: HEPARIN IV BOLUS 2,000 UNIT in SYRINGE 0 ML IV STA (05:44)
[2016-06-09] MEDS: HEPARIN 25,000 UNIT/500ML D5W 500 ML IV PRN ×3 (05:49→23:54)
[2016-06-09] MEDS: LEVOTHYROXINE 50 MCG TAB PO SCH (05:52)
[2016-06-09] MEDS: ALBUT/IPRATROP 3MG/0.5MG NEB 3 ML VIAL INH SCH ×4 (07:10→19:06)
[2016-06-09] MEDS: ALLOPURINOL 100 MG TAB PO SCH (07:43)
[2016-06-09] MEDS: ASPIRIN 81 MG ECTAB PO SCH (07:43)
[2016-06-09] MEDS: ATORVASTATIN 40 MG TAB PO SCH (07:44)
[2016-06-09] MEDS: GABAPENTIN 400 MG CAP PO SCH (07:44)
[2016-06-09] MEDS: ISOSORBIDE MONONITRATE 30 MG TABCR PO SCH (07:44)
[2016-06-09] MEDS: DOXYCYCLINE HYCLATE 100 MG CAP PO SCH ×2 (07:44→20:21)
[2016-06-09] MEDS: CITALOPRAM 20 MG TAB PO SCH (07:44)
[2016-06-09] MEDS: METOPROLOL SUCC 25MG EXT REL TAB PO SCH (07:44)
[2016-06-09] MEDS: FERROUS SULFATE 325 MG TAB PO SCH (07:44)
[2016-06-09] MEDS: CLOPIDOGREL BISULFATE 75 MG TAB PO SCH (07:44)
[2016-06-09] MEDS: CALCITRIOL 0.25 MCG CAP PO SCH (07:45)
[2016-06-09] MEDS: PANTOprazole SOD 40 MG TAB PO SCH (07:45)
[2016-06-09] MEDS: CHOLECALCIFEROL 1000 INTER.UNIT TAB PO SCH (07:45)
[2016-06-09] MEDS: MAGNESIUM OXIDE 400 MG TAB PO SCH (07:46)
[2016-06-09 09:47] LABS: POINT OF CARE PRO-BNP > 20000 pg/ml (0-1800)
--- NOTE | 2016-06-09 11:13 | Progress Note ---
Internal Med Progress Note Date of Service: Jun 09, 2016. Provider Documentation: SUBJECTIVE: Patient is sitting in the chair and is alert/awake. Not in any distress. C/O Some right sided chest pressure intermittently. No diaphoresis. Mild intermittent nausea with no vomiting. OBJECTIVE: Vital Signs-as noted below Examination: General Appearance: WD/WN, Pleasant alert 85 year old female, not in acute distress Head: normocephalic, atraumatic Eyes: normal inspection, PERRL, sclerae normal ENT: normal ENT inspection, hearing grossly normal, TMs normal, pharynx normal , no sinus tenderness Neck: supple, no JVD, trachea midline Respiratory/Chest: no respiratory distress, no accessory muscle use, Scattered rhonchi javier at lung mendoza B/L Cardiovascular: regular rate, rhythm, no murmur Abdomen/GI: normal bowel sounds, soft Extremities/Musculoskeletal: no calf tenderness, no pedal edema, no pain on ROM of right hip Neurologic/Psych: alert, normal mood/affect, oriented x 3, grossly nonfocal Skin: normal color, warm/dry Lab data as noted below. ASSESSMENT & PLAN: Chest X-Ray (06/08/2016) IMPRESSION: 1. Moderate cardiomegaly without evidence of pulmonary edema. 2. Mild irregular right midlung opacity which likely reflects normal structures or atelectasis. A mild infectious process could appear similar. Radiographic follow-up is recommended. NSTEMI: Clinically & hemodynamically stable. Known history of CAD s/p stenting; Currently chest pain free Last catheter[place] [facility] [place]- had multivessel disease, was poor candidate for CABG and PCI felt to be very high risk, medical management recommended -EKG- new ST depression in I and aVL, ST elevation in III, T wave inversion in III, aVF, V2-V5 -Serial Troponin show 22.4 --> 23.0 --> 16.1--> 10.3. -Reviewed Cardiology consult. Thanks for input. Needs to be medically managed. -Continue Aspirin, Isosorbide, beta josefa, statin, Plavix -SOPHIA-I intolerance as per records Likely Right Sided Pneumonia: With acute on chronic hypoxia; desaturated to 80s on RA in clinic and ER, (uses 2L HS at home) Afebrile; + leukocytosis 16K; HR and BP stable -Continue Rocephin (Day # 2) & Doxycycline (Day # 3) -Influenza antigen & influenza PCR are negative -Blood cultures negative so far -Continue supplemental O2 per protocol -Nebulizer treatment as per need, GURPREET On CKD Stage III: Resolved. Creat is 1.4 from baseline 1.5 -Hold furosemide -Monitoring renal function -Avoid any Nephrotoxin Chronic Systolic CHF: Clinically stable. EF 30-34% on TTE Dec 2014.Appears euvolemic -CXR- no evidence of failure -Furosemide on hold for GURPREET Chronic Anemia: Hg is 9.6; baseline 9's-11's. Denies bleeding -Monitoring H/H History HTN: BP is stable -Continue metoprolol Chronic Pain: Continue Fentanyl patch and PRN hydrocodone-acetaminophen Hypothyroidism: Continue levothyroxine Ambulatory Dysfunction: Consult PT/ OT DVT Prophylaxis: On Heparin drip Code Status: Full code per discussion with the patient on admission. Disposition: Discharge once is clinically stable. Patient lives at home under the care of daughter and son-in-law (discussed with him at bedside). Follows with Dr. Tom Pierce for primary care and Marino Calhoun PA-C for cardiology. Vital Signs: Date Time Temp Pulse Resp B/P Pulse Ox O2 Delivery O2 Flow Rate FiO2 06/09/16 07:53 37.0 80 24 135/65 99 Room Air 06/09/16 07:10 80 18 90 Room Air 06/09/16 04:12 Room Air 06/09/16 03:38 37.1 84 19 149/82 97 Nasal Cannula 2.0 06/09/16 00:00 Room Air 06/08/16 23:31 37.0 84 19 130/79 94 Room Air 06/08/16 20:00 Room Air 06/08/16 19:46 77 18 98 Nasal Cannula 2.0 06/08/16 19:29 36.6 80 18 126/78 97 Nasal Cannula 2.0 06/08/16 16:00 Nasal Cannula 2.0 06/08/16 15:31 68 18 94 Nasal Cannula 2.0 06/08/16 14:55 36.9 69 18 104/59 96 Nasal Cannula 2.0 06/08/16 12:41 36.9 73 18 108/60 96 Nasal Cannula 3.0 06/08/16 12:00 Nasal Cannula 2.0 06/08/16 11:15 70 18 97 Nasal Cannula 2.0 Lab Results: Results Past 24 Hours Test 06/08/16 14:14 06/09/16 04:43 Range/Units Total Creatine Kinase 280 185 26-192 U/L Troponin I 16.100 10.300 0-0.045 ng/ml White Blood Count 11.23 4.8-10.8 K/uL Red Blood Count 2.91 4.2-5.4 M/uL Hemoglobin 9.3 12.0-16.0 g/dL Hematocrit 28.1 37-47 % Mean Corpuscular Volume 96.6 80-100 fL Mean Corpuscular Hemoglobin 32.0 25-34 pg Mean Corpuscular Hemoglobin Concent 33.1 32-36 g/dl RDW Standard Deviation 52.4 36.4-46.3 fL RDW Coefficient of Variation 15.0 11.5-14.5 % Platelet Count 223 130-400 K/uL Mean Platelet Volume 9.7 7.4-10.4 fL Activated Partial Thromboplast Time 41.1 21.0-31.0 SECONDS Partial Thromboplastin Ratio 1.6 Sodium Level 138 136-145 mmol/L Potassium Level 3.9 3.5-5.1 mmol/L Chloride Level 100 98-107 mmol/L Carbon Dioxide Level 31 21-32 mmol/L Anion Gap 7.0 3-11 mmol/L Blood Urea Nitrogen 45 7-18 mg/dl Creatinine 1.40 0.60-1.20 mg/dl Est Creatinine Clear Calc Drug Dose 26.0 ml/min Estimated GFR () 39.6 Estimated GFR (Non- 34.2 BUN/Creatinine Ratio 31.9 10-20 Random Glucose 131 70-99 mg/dl Calcium Level 8.8 8.5-10.1 mg/dl Total Bilirubin 0.4 0.2-1 mg/dl Aspartate Amino Transf (AST/SGOT) 66 15-37 U/L Alanine Aminotransferase (ALT/SGPT) 43 12-78 U/L Alkaline Phosphatase 72 45-117 U/L Total Protein 6.6 6.4-8.2 gm/dl Albumin 2.9 3.4-5.0 gm/dl Globulin 3.7 2.5-4.0 gm/dl Albumin/Globulin Ratio 0.8 0.9-2
--- NOTE | 2016-06-09 13:36 | PROGRESS NOTE ---
DATE: 06/09/2016 The patient seen and examined. Chart, medications, telemetry reviewed. SUBJECTIVE: The patient notes no complaints this morning, pleasant, sitting out in the chair with mild confusion. Denies headache or chest discomfort. Notes no orthopnea, PND or worsening peripheral edema. Cough is substantially improved. OBJECTIVE: VITAL SIGNS: Heart rate 79, blood pressure is 137/67. NECK: Thin. There is no jugular venous distention. LUNGS: Notable for substantially improved respiratory status, less rhonchi and wheeze. CARDIOVASCULAR: Regular. There is no S3 gallop. ABDOMEN: Soft, nontender. EXTREMITIES: Without cyanosis or clubbing. There is no peripheral edema. LABORATORY DATA: Sodium is 138, potassium is 3.9, chloride is 100, bicarbonate is 31, BUN is 45, creatinine is 1.4. White cell count is 11.2, hemoglobin is 9.3. IMPRESSION: An 85-year-old female admitted with acute respiratory decline secondary to tracheobronchitis pneumonia. Complications of non-ST segment elevation myocardial infarction secondary to chronic severe multivessel coronary artery disease. The patient is being managed medically. Renal function is improving. Will plan on discontinuing heparin today. Continue current cardiac medications and treatment of underlying pneumonia. The patient demonstrating clinical improvement.
[2016-06-09 14:04] LABS: PARTIAL THROMBOPLASTIN RATIO 1.7
[2016-06-09] MEDS: CEFTRIAXONE SOD INJ 1 GM in DEXTROSE 5% ADD-VANTAGE 50ML 50 ML IV SCH (14:30)
[2016-06-09] MEDS ORDERED: HEPARIN IV BOLUS 2,000 UNIT in SYRINGE 0 ML IV ONE (15:45)
[2016-06-09 22:59] LABS: PARTIAL THROMBOPLASTIN RATIO 1.5
[2016-06-09] MEDS ORDERED: HEPARIN IV BOLUS 4,000 UNIT in SYRINGE 0 ML IV ONE (23:30)
[2016-06-10] VITALS (11 sets, daily range): BP systolic 123–150; BP diastolic 65–104; PULSE 67–79; TEMP 36.4–37; O2SAT 90–100
[2016-06-10 06:18] LABS: BASO % 0.1 %; BASO ABS # 0.01 K/uL (0-0.2); COMPLETE YES; EOS % 1.3 %; HEMATOCRIT 29.4 % (37-47); IG% 1.3 %; LYMPH % 15.9 %; LYMPH ABS # 1.25 K/uL (1.2-3.4); MEAN CELL VOLUME 98.7 fL (80-100); MEAN CORPUSCULAR HEMOGLOBIN 32.9 pg (25-34); MEAN CORPUSCULAR HGB CONC 33.3 g/dl (32-36); MEAN PLATELET VOLUME 9.6 fL (7.4-10.4); MONO % 4.8 %; NEUT % 76.6 %; PLATELET COUNT 219 K/uL (130-400); RED BLOOD COUNT 2.98 M/uL (4.2-5.4); WHITE BLOOD COUNT 7.86 K/uL (4.8-10.8)
[2016-06-10] MEDS: LEVOTHYROXINE 50 MCG TAB PO SCH (06:21)
[2016-06-10 06:47] LABS: BUN/CREATININE RATIO 27.2 (10-20); CALCIUM 9.4 mg/dl (8.5-10.1); CREATININE 1.2 mg/dl (0.60-1.20); POTASSIUM 3.8 mmol/L (3.5-5.1)
[2016-06-10 06:54] LABS: PARTIAL THROMBOPLASTIN RATIO 2.1
[2016-06-10] MEDS: ALBUT/IPRATROP 3MG/0.5MG NEB 3 ML VIAL INH SCH ×4 (07:06→19:00)
[2016-06-10] MEDS: CHECK FENTANYL PATCH PLACEMENT SCH ×4 (08:00→15:38)
--- NOTE | 2016-06-10 08:15 | DIAGNOSTIC IMAGING REPORT ---
SINGLE VIEW CHEST CLINICAL HISTORY: Follow-up pneumonia. FINDINGS: An AP, portable, upright chest radiograph is compared to study dated 06/08/2016. The heart is enlarged and there is atherosclerotic calcification of the thoracic aorta. The pulmonary vasculature is noncongested. There is left basilar atelectasis. No airspace consolidation is seen typical for pneumonia. Chronic interstitial thickening is unchanged. There is no pneumothorax. The skeletal structures are osteopenic. Degenerative changes and scoliosis are noted involving the thoracic spine. IMPRESSION: 1. Cardiomegaly without radiographic evidence of congestive failure. 2. No airspace consolidation or large pleural effusion is identified. Electronically signed by: Jerod Mosley M.D. 06/10/2016 8:13 AM Dictated Date/Time: 06/10/2016 8:12 AM
[2016-06-10] MEDS: ATORVASTATIN 40 MG TAB PO SCH (08:41)
[2016-06-10] MEDS: ASPIRIN 81 MG ECTAB PO SCH (08:41)
[2016-06-10] MEDS: ALLOPURINOL 100 MG TAB PO SCH (08:41)
[2016-06-10] MEDS: DOXYCYCLINE HYCLATE 100 MG CAP PO SCH ×2 (08:42→20:42)
[2016-06-10] MEDS: PANTOprazole SOD 40 MG TAB PO SCH (08:42)
[2016-06-10] MEDS: FERROUS SULFATE 325 MG TAB PO SCH (08:42)
[2016-06-10] MEDS: CLOPIDOGREL BISULFATE 75 MG TAB PO SCH (08:42)
[2016-06-10] MEDS: GABAPENTIN 400 MG CAP PO SCH (08:42)
[2016-06-10] MEDS: CITALOPRAM 20 MG TAB PO SCH (08:42)
[2016-06-10] MEDS: ISOSORBIDE MONONITRATE 30 MG TABCR PO SCH (08:42)
[2016-06-10] MEDS: METOPROLOL SUCC 25MG EXT REL TAB PO SCH (08:42)
[2016-06-10] MEDS: GUAIFENESIN SUGAR FREE 100 MG/5 ML UDC PO PRN (08:43)
[2016-06-10] MEDS: CALCITRIOL 0.25 MCG CAP PO SCH (08:43)
[2016-06-10] MEDS: CHOLECALCIFEROL 1000 INTER.UNIT TAB PO SCH (08:43)
[2016-06-10] MEDS: CEFTRIAXONE SOD INJ 1 GM in DEXTROSE 5% ADD-VANTAGE 50ML 50 ML IV SCH (14:00)
--- NOTE | 2016-06-10 14:23 | Progress Note ---
Medicine Progress Note Date & Time of Visit: Jun 10, 2016 at 14:16. Subjective seen resting in bed states she feels "not too good", sore throat breathing and cough gradually improving no chest pain occasionally gets confused as per family denies other symptoms Objective Last 8 Hrs Date Time Temp Pulse Resp B/P Pulse Ox O2 Delivery O2 Flow Rate FiO2 06/10/16 12:00 Room Air 06/10/16 11:59 36.7 75 22 150/65 93 Room Air 06/10/16 11:22 75 18 93 Room Air 06/10/16 08:00 Room Air 06/10/16 07:56 36.8 67 22 129/81 100 Room Air 06/10/16 07:55 36.8 67 20 129/81 100 Room Air 06/10/16 07:10 79 18 92 Room Air Physical Exam: General- oriented x 2, not in distress, speaks in sentences with no effort Head- atraumatic Eyes- EOMI, anicteric ENT- oropharynx clear Neck- supple, no JVD, Lungs- mild expiratory wheeze bilaterally Heart- normal rate, regular rhythm; no murmurs Abdomen- normal bowel sounds, soft, nontender Extremities- no pretibial edema, no calf tenderness Neuro- alert, oriented x 2 no gross deficits Skin- warm & dry Laboratory Results: Last 24 Hours Test 06/09/16 22:30 06/10/16 06:00 Activated Partial Thromboplast Time 39.6 SECONDS 55.1 SECONDS Partial Thromboplastin Ratio 1.5 2.1 White Blood Count 7.86 K/uL Red Blood Count 2.98 M/uL Hemoglobin 9.8 g/dL Hematocrit 29.4 % Mean Corpuscular Volume 98.7 fL Mean Corpuscular Hemoglobin 32.9 pg Mean Corpuscular Hemoglobin Concent 33.3 g/dl Platelet Count 219 K/uL Mean Platelet Volume 9.6 fL Neutrophils (%) (Auto) 76.6 % Lymphocytes (%) (Auto) 15.9 % Monocytes (%) (Auto) 4.8 % Eosinophils (%) (Auto) 1.3 % Basophils (%) (Auto) 0.1 % Neutrophils # (Auto) 6.02 K/uL Lymphocytes # (Auto) 1.25 K/uL Monocytes # (Auto) 0.38 K/uL Eosinophils # (Auto) 0.10 K/uL Basophils # (Auto) 0.01 K/uL RDW Standard Deviation 54.0 fL RDW Coefficient of Variation 15.0 % Immature Granulocyte % (Auto) 1.3 % Immature Granulocyte # (Auto) 0.10 K/uL Nucleated RBC Absolute Count (auto) 0.03 K/uL Nucleated Red Blood Cells % 0.4 % Sodium Level 139 mmol/L Potassium Level 3.8 mmol/L Chloride Level 100 mmol/L Carbon Dioxide Level 34 mmol/L Anion Gap 5.0 mmol/L Blood Urea Nitrogen 33 mg/dl Creatinine 1.20 mg/dl Est Creatinine Clear Calc Drug Dose 29.7 ml/min Estimated GFR () 47.7 Estimated GFR (Non- 41.2 BUN/Creatinine Ratio 27.2 Random Glucose 101 mg/dl Calcium Level 9.4 mg/dl Troponin I 6.460 ng/ml Procalcitonin 3.97 ng/mL Assessment & Plan NSTEMI: Clinically & hemodynamically stable. Known history of CAD s/p stenting Last catheterization at [facility] in Dec 2014- had multivessel disease, was poor candidate for CABG and PCI felt to be very high risk, medical management recommended -EKG- new ST depression in I and aVL, ST elevation in III, T wave inversion in III, aVF, V2-V5 -Serial Troponin show 22.4 --> 23.0 --> 16.1--> 10.3. - cardiac status stable overall evaluated by Jtac d/c heparin, medical management for now -Continue Aspirin, Isosorbide, beta josefa, statin, Plavix -SOPHIA-I intolerance as per records Likely Right Sided Pneumonia vs. Acute Bronchitis - slowly improving -Influenza antigen & influenza PCR are negative -Blood cultures negative so far -Continue Rocephin (Day # 3) & Doxycycline (Day # 4) Nebs GURPREET On CKD Stage III - Resolved. Creat is 1.4 from baseline 1.5 - resume lower dose Lasix 20mg daily Chronic Systolic CHF: Clinically stable. EF 30-34% on TTE Dec 2014.Appears euvolemic -CXR- no evidence of failure resume low dose lasix for now Chronic Anemia: Hg is 9.6; baseline 9's-11's. Denies bleeding -Monitoring H/H History HTN: BP is stable -Continue metoprolol Chronic Pain: Continue Fentanyl patch and PRN hydrocodone-acetaminophen Hypothyroidism: Continue levothyroxine Ambulatory Dysfunction: Consult PT/ OT DVT Prophylaxis: Heparin subcutaneous Code Status: Full code per discussion with the patient on admission. Disposition: Discharge once is clinically stable. Patient lives at home under the care of daughter and son-in-law (discussed with him at bedside). Follows with Dr. Tom Pierce for primary care and Marnio Calhoun PA-C for cardiology. Current Inpatient Medications: Current Inpatient Medications Medications (Trade) Dose Ordered Sig/Jeferson Route Start Time Stop Time Status Last Admin Dose Admin Acetaminophen (Tylenol Tab) 650 mg Q4H PRN PO 06/07/16 16:00 07/07/16 15:59 Ondansetron HCl (Zofran Inj) 4 mg Q6H PRN IV 06/07/16 16:00 07/07/16 15:59 Nitroglycerin (Nitrostat Tab) 0.4 mg UD PRN SL 06/07/16 16:00 07/07/16 15:59 Polyethylene (Miralax Powder Packet) 17 gm DAILY PRN PO 06/07/16 16:00 07/07/16 15:59 Albuterol/ Ipratropium (Duoneb) 3 ml QIDR INH 06/07/16 20:00 07/07/16 19:59 06/10/16 11:21 3 ML Allopurinol (Zyloprim Tab) 100 mg DAILY PO 06/08/16 09:00 07/08/16 08:59 06/10/16 08:41 100 MG Aspirin (Ecotrin Tab) 81 mg DAILY PO 06/08/16 09:00 07/08/16 08:59 06/10/16 08:41 81 MG Atorvastatin Calcium (Lipitor Tab) 80 mg DAILY PO 06/08/16 09:00 07/08/16 08:59 06/10/16 08:41 80 MG Calcitriol (Rocaltrol Cap) 0.25 mcg DAILY PO 06/07/16 17:00 07/07/16 16:59 06/10/16 08:43 0.25 MCG Cholecalciferol (Vitamin D Tab) 2,000 inter.unit DAILY PO 06/08/16 09:00 07/08/16 08:59 06/10/16 08:43 2,000 INTER.UNIT Citalopram Hydrobromide (celeXA TAB) 30 mg DAILY PO 06/08/16 09:00 07/08/16 08:59 06/10/16 08:42 30 MG Clopidogrel Bisulfate (plAVix TAB) 75 mg DAILY PO 06/08/16 09:00 07/08/16 08:59 06/10/16 08:42 75 MG Fentanyl (Duragesic Patch) 12 mcg Q3D@1700 TD 06/07/16 17:00 06/21/16 16:59 06/07/16 18:11 12 MCG Fentanyl (Duragesic Patch) 25 mcg Q3D@1700 TD 06/07/16 17:00 06/21/16 16:59 06/07/16 18:12 25 MCG Gabapentin (Neurontin Cap) 400 mg DAILY PO 06/08/16 09:00 07/08/16 08:59 06/10/16 08:42 400 MG Isosorbide Mononitrate (Imdur Ext Rel Tab) 30 mg QAM PO 06/08/16 09:00 07/08/16 08:59 06/10/16 08:42 30 MG Levothyroxine Sodium (Synthroid Tab) 50 mcg DAILYBB PO 06/08/16 06:00 07/08/16 05:59 06/10/16 06:21 50 MCG Magnesium Oxide (Mag-Ox Tab) 400 mg MoWeFr@0900 PO 06/09/16 09:00 07/09/16 08:59 06/09/16 07:46 400 MG Metoprolol Succinate (Toprol Xl Tab) 25 mg DAILY PO 06/08/16 09:00 07/08/16 08:59 06/10/16 08:42 25 MG Ferrous Sulfate (Feosol Tab) 325 mg QAM PO 06/08/16 09:00 07/08/16 08:59 06/10/16 08:42 325 MG Pantoprazole Sodium (Protonix Tab) 40 mg QAM PO 06/08/16 09:00 07/08/16 08:59 06/10/16 08:42 40 MG Miscellaneous (Fentanyl Patch Remove & Waste) 1 ea Q3D@1659 N/A 06/07/16 16:59 07/07/16 16:58 06/07/16 16:59 1 EA Miscellaneous Information (Check Fentanyl Patch Placement) 1 ea QS N/A 06/08/16 00:00 07/08/16 00:00 06/10/16 08:00 1 EA Miscellaneous (Fentanyl Patch Remove & Waste) 1 ea Q3D@1659 N/A 06/07/16 16:59 07/07/16 16:58 06/07/16 16:59 1 EA Miscellaneous Information (Check Fentanyl Patch Placement) 1 ea QS N/A 06/08/16 00:00 07/08/16 00:00 06/10/16 08:00 1 EA Doxycycline Hyclate 100 mg 100 mg BID PO 06/08/16 21:00 06/14/16 20:59 06/10/16 08:42 100 MG Ceftriaxone Sodium/Dextrose (Rocephin Inj/ Dextrose Add-[place] 50ML) 50 ml @ 100 mls/hr Q24H IV 06/08/16 14:00 06/15/16 13:59 06/09/16 14:30 100 MLS/HR Guaifenesin (Robitussin Sugar Free Syrup) 100 mg Q6H PRN PO 06/09/16 03:45 07/09/16 03:44 06/10/16 08:43 100 MG
--- NOTE | 2016-06-10 14:49 | DIAGNOSTIC IMAGING REPORT ---
RIGHT HIP UNILATERAL 2 VIEWS CLINICAL HISTORY: r/o fracture Right trauma. Pain. COMPARISON: None. DISCUSSION: Total right hip arthroplasty with good position. No evidence for fracture. No evidence for acetabular protrusion. There is no evidence for soft tissue swelling. IMPRESSION: No acute process status post total right hip arthroplasty Electronically signed by: Marino Aguilar M.D. 06/10/2016 2:47 PM Dictated Date/Time: 06/10/2016 2:46 PM
--- NOTE | 2016-06-10 15:38 | CARDIOLOGY PROGRESS NOTE ---
DATE: 06/10/2016 DATE: 06/10/2016. The patient seen and examined. Chart, medications, telemetry reviewed. SUBJECTIVE: The patient has no complaints this morning. Still has a mild but nonproductive cough. Notes no chest pains. Notes no tachypalpitations. Notes no dizziness or lightheadedness. Notes no syncope. OBJECTIVE: VITAL SIGNS: Heart rate is 72, blood pressure is mildly elevated at 150/65, O2 saturations 95% on 2 liters nasal cannula. NECK: Thin. There is no jugular venous distention. LUNGS: Reveal scattered few rhonchi at the right base. CARDIOVASCULAR EXAMINATION: Regular. There is no S3 gallop. ABDOMEN: Soft, nontender. EXTREMITIES: Without cyanosis or clubbing. There is no peripheral edema. LABORATORY DATA: White cell count 7.8, hemoglobin is 9.8, hematocrit 29.4. Sodium 139, potassium is 3.8, chloride is 100, bicarbonate 34, BUN is 33, creatinine is 1.2, troponin is 6.4. IMPRESSION: An 85-year-old female with severe multivessel coronary disease felt to be poorly amenable to coronary intervention or bypass surgery by last diagnostic cardiac catheterization 2014. Medically managed with history of past class 2+ angina pectoris. She presents now with acute respiratory distress and pneumonia with complications demand based myocardial ischemia and non-ST segment elevation myocardial infarction. The patient is on appropriate medical therapies. She has got no cardiac symptoms since admission, productive cough and pleuritic pain is improved. The patient previous hospitalization has been on furosemide 80 mg per day. Will as noted reinstitute today. Anticoagulation has been discontinued. Ongoing treatment from pneumonia and respiratory issues have been begun.
[2016-06-10] MEDS: FUROSEMIDE 20 MG TAB PO SCH (15:42)
[2016-06-10] MEDS: FENTANYL PATCH REMOVE & WASTE SCH ×2 (16:32→16:33)
[2016-06-10] MEDS: FENTANYL 12 MCG/HR TDSY TD SCH (17:07)
[2016-06-10] MEDS: FENTANYL 25 MCG/HR TDSY TD SCH (17:08)
[2016-06-10] MEDS ORDERED: HEPARIN SOD 5000 UNIT/0.5 ML CARP SQ SCH (21:00)
[2016-06-11] VITALS (9 sets, daily range): BP systolic 106–160; BP diastolic 60–83; PULSE 71–88; TEMP 36.5–36.9; O2SAT 90–99
[2016-06-11] MEDS: CHECK FENTANYL PATCH PLACEMENT SCH ×6 (00:16→08:00)
[2016-06-11] MEDS ORDERED: COUGH DROP (SUGAR FREE) LOZ 24 LOZ/1 BOX ONE (06:32)
[2016-06-11] MEDS: LEVOTHYROXINE 50 MCG TAB PO SCH (06:34)
[2016-06-11] MEDS: ALBUT/IPRATROP 3MG/0.5MG NEB 3 ML VIAL INH SCH (06:54)
[2016-06-11 07:04] LABS: HEMATOCRIT 31.5 % (37-47); MEAN CELL VOLUME 97.5 fL (80-100); MEAN CORPUSCULAR HEMOGLOBIN 31.9 pg (25-34); MEAN CORPUSCULAR HGB CONC 32.7 g/dl (32-36); MEAN PLATELET VOLUME 9.7 fL (7.4-10.4); PLATELET COUNT 248 K/uL (130-400); RED BLOOD COUNT 3.23 M/uL (4.2-5.4); WHITE BLOOD COUNT 9.92 K/uL (4.8-10.8)
[2016-06-11 07:31] LABS: BUN/CREATININE RATIO 23.9 (10-20); CALCIUM 9.4 mg/dl (8.5-10.1); CREATININE 1.1 mg/dl (0.60-1.20); POTASSIUM 3.9 mmol/L (3.5-5.1)
[2016-06-11] MEDS: CITALOPRAM 20 MG TAB PO SCH (09:15)
[2016-06-11] MEDS: ASPIRIN 81 MG ECTAB PO SCH (09:16)
[2016-06-11] MEDS: FERROUS SULFATE 325 MG TAB PO SCH (09:17)
[2016-06-11] MEDS: ISOSORBIDE MONONITRATE 30 MG TABCR PO SCH (09:17)
[2016-06-11] MEDS: GABAPENTIN 400 MG CAP PO SCH (09:18)
[2016-06-11] MEDS: METOPROLOL SUCC 25MG EXT REL TAB PO SCH (09:18)
[2016-06-11] MEDS: CALCITRIOL 0.25 MCG CAP PO SCH (09:18)
[2016-06-11] MEDS: ATORVASTATIN 40 MG TAB PO SCH (09:18)
[2016-06-11] MEDS: DOXYCYCLINE HYCLATE 100 MG CAP PO SCH ×2 (09:18→19:57)
[2016-06-11] MEDS: CLOPIDOGREL BISULFATE 75 MG TAB PO SCH (09:19)
[2016-06-11] MEDS: MAGNESIUM OXIDE 400 MG TAB PO SCH (09:19)
[2016-06-11] MEDS: PANTOprazole SOD 40 MG TAB PO SCH (09:19)
[2016-06-11] MEDS: CHOLECALCIFEROL 1000 INTER.UNIT TAB PO SCH (09:19)
[2016-06-11] MEDS: ALLOPURINOL 100 MG TAB PO SCH (09:19)
[2016-06-11] MEDS: FUROSEMIDE 20 MG TAB PO SCH ×2 (09:19→19:57)
[2016-06-11] MEDS: HEPARIN SOD 5000 UNIT/0.5 ML CARP SQ SCH ×2 (09:20→19:59)
[2016-06-11] MEDS ORDERED: LEVALBUTEROL/IPRATROPIUM NEB INH SCH ×2 (10:00→12:00)
--- NOTE | 2016-06-11 10:02 | Progress Note ---
Medicine Progress Note Date & Time of Visit: Jun 11, 2016 at 09:56. Subjective patient seen resting in bed, comfortable, alert, oriented states she feels somewhat off today seems to be coughing more today no chest pain, dizziness, nausea, palpitations no fever/chills denies other symptoms Objective Last 8 Hrs Date Time Temp Pulse Resp B/P Pulse Ox O2 Delivery O2 Flow Rate FiO2 06/11/16 07:31 36.5 74 16 160/70 92 Room Air 06/11/16 06:54 76 18 96 Room Air 06/11/16 04:00 36.6 83 18 139/83 93 Nasal Cannula 1.0 06/11/16 04:00 Nasal Cannula 1.0 Physical Exam: General- oriented x 2, not in distress, speaks in sentences with no effort Eyes- anicteric Neck- supple, no JVD Lungs- mild scattered crackles bilaterally Heart- normal rate, regular rhythm; no murmurs Abdomen- normal bowel sounds, soft, nontender Extremities- no pretibial edema, no calf tenderness Neuro- alert, oriented x 2 no gross deficits Skin- warm & dry Laboratory Results: Last 24 Hours Test 06/11/16 06:35 White Blood Count 9.92 K/uL Red Blood Count 3.23 M/uL Hemoglobin 10.3 g/dL Hematocrit 31.5 % Mean Corpuscular Volume 97.5 fL Mean Corpuscular Hemoglobin 31.9 pg Mean Corpuscular Hemoglobin Concent 32.7 g/dl RDW Standard Deviation 53.0 fL RDW Coefficient of Variation 15.2 % Platelet Count 248 K/uL Mean Platelet Volume 9.7 fL Nucleated RBC Absolute Count (auto) 0.04 K/uL Nucleated Red Blood Cells % 0.4 % Activated Partial Thromboplast Time 25.8 SECONDS Partial Thromboplastin Ratio 1.0 Sodium Level 138 mmol/L Potassium Level 3.9 mmol/L Chloride Level 100 mmol/L Carbon Dioxide Level 32 mmol/L Anion Gap 6.0 mmol/L Blood Urea Nitrogen 26 mg/dl Creatinine 1.10 mg/dl Est Creatinine Clear Calc Drug Dose 32.4 ml/min Estimated GFR () 53.0 Estimated GFR (Non- 45.7 BUN/Creatinine Ratio 23.9 Random Glucose 94 mg/dl Calcium Level 9.4 mg/dl Assessment & Plan 85 year old female with history of CAD s/p Stent placement, CHF, HTN, CKD presenting with cough. Possible Right Sided Pneumonia vs. Acute Bronchitis - slowly improving -Influenza antigen & influenza PCR are negative -Blood cultures negative so far - 92% on room air - Continue Rocephin (Day # 4) & Doxycycline (Day # 5) Nebs increased to q4h Chronic Systolic CHF . EF 30-34% on TTE Dec 2014. lasix held since admission (+) crackles today check CXR may need IV lasix this AM Nebs q4h NSTEMI: Clinically & hemodynamically stable. Known history of CAD s/p stenting Last catheterization at [facility] [place] in Dec 2014- had multivessel disease, was poor candidate for CABG and PCI felt to be very high risk, medical management recommended -EKG- new ST depression in I and aVL, ST elevation in III, T wave inversion in III, aVF, V2-V5 -Serial Troponin show 22.4 --> 23.0 --> 16.1--> 10.3. evaluated by Network Systems Engineer d/c heparin, medical management for now -Continue Aspirin, Isosorbide, beta josefa, statin, Plavix -SOPHIA-I intolerance as per records GURPREET On CKD Stage III - Resolved Creat is 1.4 from baseline 1.5 Chronic Anemia: Hg is 9.6; baseline 9's-11's. Denies bleeding -Monitoring H/H History HTN: BP is stable -Continue metoprolol Chronic Pain Continue Fentanyl patch and PRN hydrocodone-acetaminophen Hypothyroidism: Continue levothyroxine Ambulatory Dysfunction: Consult PT/ OT DVT Prophylaxis: Heparin subcutaneous Code Status: Full code per discussion with the patient on admission. Disposition: pending patient and family prefers for patient to return home when medically stable, possible home health with PT Patient lives at home under the care of daughter and son-in-law (discussed with him at bedside). Follows with Dr. Tom Pierce for primary care and Marino Calhoun PA-C for cardiology. Current Inpatient Medications: Current Inpatient Medications Medications (Trade) Dose Ordered Sig/Jeferson Route Start Time Stop Time Status Last Admin Dose Admin Acetaminophen (Tylenol Tab) 650 mg Q4H PRN PO 06/07/16 16:00 07/07/16 15:59 Ondansetron HCl (Zofran Inj) 4 mg Q6H PRN IV 06/07/16 16:00 07/07/16 15:59 Nitroglycerin (Nitrostat Tab) 0.4 mg UD PRN SL 06/07/16 16:00 07/07/16 15:59 Polyethylene (Miralax Powder Packet) 17 gm DAILY PRN PO 06/07/16 16:00 07/07/16 15:59 Allopurinol (Zyloprim Tab) 100 mg DAILY PO 06/08/16 09:00 07/08/16 08:59 06/11/16 09:19 100 MG Aspirin (Ecotrin Tab) 81 mg DAILY PO 06/08/16 09:00 07/08/16 08:59 06/11/16 09:16 81 MG Atorvastatin Calcium (Lipitor Tab) 80 mg DAILY PO 06/08/16 09:00 07/08/16 08:59 06/11/16 09:18 80 MG Calcitriol (Rocaltrol Cap) 0.25 mcg DAILY PO 06/07/16 17:00 07/07/16 16:59 06/11/16 09:18 0.25 MCG Cholecalciferol (Vitamin D Tab) 2,000 inter.unit DAILY PO 06/08/16 09:00 07/08/16 08:59 06/11/16 09:19 2,000 INTER.UNIT Citalopram Hydrobromide (celeXA TAB) 30 mg DAILY PO 06/08/16 09:00 07/08/16 08:59 06/11/16 09:15 30 MG Clopidogrel Bisulfate (plAVix TAB) 75 mg DAILY PO 06/08/16 09:00 07/08/16 08:59 06/11/16 09:19 75 MG Fentanyl (Duragesic Patch) 12 mcg Q3D@1700 TD 06/07/16 17:00 06/21/16 16:59 06/10/16 17:07 12 MCG Fentanyl (Duragesic Patch) 25 mcg Q3D@1700 TD 06/07/16 17:00 06/21/16 16:59 06/10/16 17:08 25 MCG Gabapentin (Neurontin Cap) 400 mg DAILY PO 06/08/16 09:00 07/08/16 08:59 06/11/16 09:18 400 MG Isosorbide Mononitrate (Imdur Ext Rel Tab) 30 mg QAM PO 06/08/16 09:00 07/08/16 08:59 06/11/16 09:17 30 MG Levothyroxine Sodium (Synthroid Tab) 50 mcg DAILYBB PO 06/08/16 06:00 07/08/16 05:59 06/11/16 06:34 50 MCG Magnesium Oxide (Mag-Ox Tab) 400 mg MoWeFr@0900 PO 06/09/16 09:00 07/09/16 08:59 06/11/16 09:19 400 MG Metoprolol Succinate (Toprol Xl Tab) 25 mg DAILY PO 06/08/16 09:00 07/08/16 08:59 06/11/16 09:18 25 MG Ferrous Sulfate (Feosol Tab) 325 mg QAM PO 06/08/16 09:00 07/08/16 08:59 06/11/16 09:17 325 MG Pantoprazole Sodium (Protonix Tab) 40 mg QAM PO 06/08/16 09:00 07/08/16 08:59 06/11/16 09:19 40 MG Miscellaneous (Fentanyl Patch Remove & Waste) 1 ea Q3D@1659 N/A 06/07/16 16:59 07/07/16 16:58 06/10/16 16:32 1 EA Miscellaneous Information (Check Fentanyl Patch Placement) 1 ea QS N/A 06/08/16 00:00 07/08/16 00:00 06/11/16 08:00 1 EA Miscellaneous (Fentanyl Patch Remove & Waste) 1 ea Q3D@1659 N/A 06/07/16 16:59 07/07/16 16:58 06/10/16 16:33 1 EA Miscellaneous Information (Check Fentanyl Patch Placement) 1 ea QS N/A 06/08/16 00:00 07/08/16 00:00 06/11/16 08:00 1 EA Doxycycline Hyclate 100 mg 100 mg BID PO 06/08/16 21:00 06/14/16 20:59 06/11/16 09:18 100 MG Ceftriaxone Sodium/Dextrose (Rocephin Inj/ Dextrose Add-[place] 50ML) 50 ml @ 100 mls/hr Q24H IV 06/08/16 14:00 06/15/16 13:59 06/10/16 14:00 100 MLS/HR Guaifenesin (Robitussin Sugar Free Syrup) 100 mg Q6H PRN PO 06/09/16 03:45 07/09/16 03:44 06/10/16 08:43 100 MG Furosemide (Lasix Tab) 20 mg DAILY PO 06/10/16 14:30 07/10/16 14:29 06/11/16 09:19 20 MG Heparin Sodium (Porcine) (Heparin Sq 5000 Unit/0.5ml) 5,000 unit Q12 SQ 06/11/16 09:00 07/11/16 08:59 06/11/16 09:20 5,000 UNIT Miscellaneous (Xopenex/ Atrovent Neb) 1 ea Q4H INH 06/11/16 10:00 07/11/16 09:59 UNV
--- NOTE | 2016-06-11 10:16 | DIAGNOSTIC IMAGING REPORT ---
SINGLE VIEW CHEST CLINICAL HISTORY: Dyspnea. FINDINGS: An AP, portable, upright chest radiograph is compared to study dated 06/10/2016. The examination is degraded by portable technique and patient rotation. The heart is enlarged and there is atherosclerotic calcification of the thoracic aorta. The pulmonary vasculature is noncongested. There is left basilar atelectasis. No airspace consolidation is seen typical for pneumonia. Chronic interstitial thickening is unchanged. There is no pneumothorax. The skeletal structures are osteopenic. Degenerative changes and scoliosis are noted involving the thoracic spine. IMPRESSION: 1. Cardiomegaly without radiographic evidence of congestive failure. 2. No airspace consolidation or large pleural effusion is identified. There has been no significant change from yesterday. Electronically signed by: Jerod Mosley M.D. 06/11/2016 10:13 AM Dictated Date/Time: 06/11/2016 10:13 AM
[2016-06-11] MEDS: LEVALBUTEROL 1.25MG/0.5ML NEB INH SCH ×3 (11:48→19:40)
[2016-06-11] MEDS: IPRATROPIUM BROMIDE NEB SOLN 0.02% 2.5 ML VIAL INH SCH ×3 (11:48→19:40)
[2016-06-11] MEDS ORDERED: FUROSEMIDE 20 MG TAB PO ONE (12:00)
[2016-06-11] MEDS: CEFTRIAXONE SOD INJ 1 GM in DEXTROSE 5% ADD-VANTAGE 50ML 50 ML IV SCH (14:00)
[2016-06-12] VITALS (11 sets, daily range): BP systolic 133–152; BP diastolic 75–86; PULSE 71–85; TEMP 36.6–37; O2SAT 90–97
[2016-06-12] MEDS: IPRATROPIUM BROMIDE NEB SOLN 0.02% 2.5 ML VIAL INH SCH ×5 (02:10→19:46)
[2016-06-12] MEDS: LEVALBUTEROL 1.25MG/0.5ML NEB INH SCH ×5 (02:10→19:46)
[2016-06-12] MEDS: LEVOTHYROXINE 50 MCG TAB PO SCH (06:11)
[2016-06-12 07:39] LABS: PARTIAL THROMBOPLASTIN RATIO 0.9
[2016-06-12] MEDS: BENZONATATE 100MG CAP PO PRN ×2 (07:55→19:57)
[2016-06-12] MEDS: DOXYCYCLINE HYCLATE 100 MG CAP PO SCH ×2 (07:55→19:58)
[2016-06-12] MEDS: CALCITRIOL 0.25 MCG CAP PO SCH (07:56)
[2016-06-12] MEDS: FUROSEMIDE 20 MG TAB PO SCH ×2 (07:57→19:57)
[2016-06-12] MEDS: CHOLECALCIFEROL 1000 INTER.UNIT TAB PO SCH (07:58)
[2016-06-12] MEDS: PANTOprazole SOD 40 MG TAB PO SCH (07:58)
[2016-06-12] MEDS: ALLOPURINOL 100 MG TAB PO SCH (08:00)
[2016-06-12] MEDS: ASPIRIN 81 MG ECTAB PO SCH (08:00)
[2016-06-12] MEDS: ATORVASTATIN 40 MG TAB PO SCH (08:01)
[2016-06-12] MEDS: FERROUS SULFATE 325 MG TAB PO SCH (08:02)
[2016-06-12] MEDS: CLOPIDOGREL BISULFATE 75 MG TAB PO SCH (08:02)
[2016-06-12] MEDS: CITALOPRAM 20 MG TAB PO SCH (08:02)
[2016-06-12] MEDS: ISOSORBIDE MONONITRATE 30 MG TABCR PO SCH (08:03)
[2016-06-12] MEDS: GABAPENTIN 400 MG CAP PO SCH (08:03)
[2016-06-12] MEDS: GUAIFENESIN SUGAR FREE 100 MG/5 ML UDC PO PRN (08:04)
[2016-06-12] MEDS: METOPROLOL SUCC 25MG EXT REL TAB PO SCH (08:04)
[2016-06-12] MEDS: HEPARIN SOD 5000 UNIT/0.5 ML CARP SQ SCH ×2 (08:05→20:02)
[2016-06-12] MEDS: CHECK FENTANYL PATCH PLACEMENT SCH ×8 (08:17→23:37)
[2016-06-12 08:38] LABS: BUN/CREATININE RATIO 21.3 (10-20); CREATININE 1.1 mg/dl (0.60-1.20); POTASSIUM 3.9 mmol/L (3.5-5.1)
[2016-06-12] MEDS ORDERED: FUROSEMIDE 20 MG TAB PO SCH (09:00)
--- NOTE | 2016-06-12 09:48 | Progress Note ---
Medicine Progress Note Date & Time of Visit: Jun 12, 2016 at 09:44. Subjective patient seen resting in bed, comfortable states breathing is improved today compared to yesterday still has cough no chest pain, dyspnea, dizziness no other symptoms Objective Last 8 Hrs Date Time Temp Pulse Resp B/P Pulse Ox O2 Delivery O2 Flow Rate FiO2 06/12/16 06:50 80 18 95 Room Air 06/12/16 04:30 37.0 78 16 148/79 93 Room Air 06/12/16 04:00 Room Air 06/12/16 02:10 76 18 94 Room Air Physical Exam: General- oriented x 2, not in distress, speaks in sentences with no effort Eyes- anicteric Neck- no JVD Lungs- mild scattered crackles bilaterally right > left, improved Heart- normal rate, regular rhythm; no murmurs Abdomen- normal bowel sounds, soft, nontender Extremities- no pretibial edema, no calf tenderness Neuro- alert, oriented x 2 no gross deficits Skin- warm & dry Laboratory Results: Last 24 Hours Test 06/12/16 06:25 Activated Partial Thromboplast Time 23.1 SECONDS Partial Thromboplastin Ratio 0.9 Sodium Level 140 mmol/L Potassium Level 3.9 mmol/L Chloride Level 100 mmol/L Carbon Dioxide Level 30 mmol/L Anion Gap 10.0 mmol/L Blood Urea Nitrogen 23 mg/dl Creatinine 1.10 mg/dl Est Creatinine Clear Calc Drug Dose 32.8 ml/min Estimated GFR () 53.0 Estimated GFR (Non- 45.7 BUN/Creatinine Ratio 21.3 Random Glucose 102 mg/dl Calcium Level 10.0 mg/dl Assessment & Plan 85 year old female with history of CAD s/p Stent placement, CHF, HTN, CKD presenting with cough. Possible Right Sided Pneumonia vs. Acute Bronchitis - slowly improving -Influenza antigen & influenza PCR are negative -Blood cultures negative so far - 95% on room air - Continue Rocephin (Day # 5) & Doxycycline (Day # 6) Nebs added Mucinex Chronic Systolic CHF . EF 30-34% on TTE Dec 2014. lasix held initially lasix 40mg BID restarted 06/11/16 -800cc so far rales improved NSTEMI: Clinically & hemodynamically stable. Known history of CAD s/p stenting Last catheterization at [facility] [place] in Dec 2014- had multivessel disease, was poor candidate for CABG and PCI felt to be very high risk, medical management recommended -EKG- new ST depression in I and aVL, ST elevation in III, T wave inversion in III, aVF, V2-V5 -Serial Troponin show 22.4 --> 23.0 --> 16.1--> 10.3. evaluated by Property Assessment Monitor d/c heparin, medical management -Continue Aspirin, Isosorbide, beta josefa, statin, Plavix -SOPHIA-I intolerance as per records GURPREET On CKD Stage III - Resolved Creat is 1.4 from baseline 1.5 Chronic Anemia: Hg is 9.6; baseline 9's-11's. Denies bleeding -Monitoring H/H History HTN BP is stable -Continue metoprolol Chronic Pain Continue Fentanyl patch and PRN hydrocodone-acetaminophen Hypothyroidism: Continue levothyroxine Ambulatory Dysfunction: PT/ OT: recommend return home DVT Prophylaxis: Heparin subcutaneous Code Status: Full code per discussion with the patient on admission. Disposition: pending patient and family prefers for patient to return home when medically stable, possible home health with PT Patient lives at home under the care of daughter and son-in-law (discussed with him at bedside). Follows with Dr. Tom Pierce for primary care and Marino Calhoun PA-C for cardiology. Current Inpatient Medications: Current Inpatient Medications Medications (Trade) Dose Ordered Sig/Jeferson Route Start Time Stop Time Status Last Admin Dose Admin Acetaminophen (Tylenol Tab) 650 mg Q4H PRN PO 06/07/16 16:00 07/07/16 15:59 Ondansetron HCl (Zofran Inj) 4 mg Q6H PRN IV 06/07/16 16:00 07/07/16 15:59 Nitroglycerin (Nitrostat Tab) 0.4 mg UD PRN SL 06/07/16 16:00 07/07/16 15:59 Polyethylene (Miralax Powder Packet) 17 gm DAILY PRN PO 06/07/16 16:00 07/07/16 15:59 Allopurinol (Zyloprim Tab) 100 mg DAILY PO 06/08/16 09:00 07/08/16 08:59 06/12/16 08:00 100 MG Aspirin (Ecotrin Tab) 81 mg DAILY PO 06/08/16 09:00 07/08/16 08:59 06/12/16 08:00 81 MG Atorvastatin Calcium (Lipitor Tab) 80 mg DAILY PO 06/08/16 09:00 07/08/16 08:59 06/12/16 08:01 80 MG Calcitriol (Rocaltrol Cap) 0.25 mcg DAILY PO 06/07/16 17:00 07/07/16 16:59 06/12/16 07:56 0.25 MCG Cholecalciferol (Vitamin D Tab) 2,000 inter.unit DAILY PO 06/08/16 09:00 07/08/16 08:59 06/12/16 07:58 2,000 INTER.UNIT Citalopram Hydrobromide (celeXA TAB) 30 mg DAILY PO 06/08/16 09:00 07/08/16 08:59 06/12/16 08:02 30 MG Clopidogrel Bisulfate (plAVix TAB) 75 mg DAILY PO 06/08/16 09:00 07/08/16 08:59 06/12/16 08:02 75 MG Fentanyl (Duragesic Patch) 12 mcg Q3D@1700 TD 06/07/16 17:00 06/21/16 16:59 06/10/16 17:07 12 MCG Fentanyl (Duragesic Patch) 25 mcg Q3D@1700 TD 06/07/16 17:00 06/21/16 16:59 06/10/16 17:08 25 MCG Gabapentin (Neurontin Cap) 400 mg DAILY PO 06/08/16 09:00 07/08/16 08:59 06/12/16 08:03 400 MG Isosorbide Mononitrate (Imdur Ext Rel Tab) 30 mg QAM PO 06/08/16 09:00 07/08/16 08:59 06/12/16 08:03 30 MG Levothyroxine Sodium (Synthroid Tab) 50 mcg DAILYBB PO 06/08/16 06:00 07/08/16 05:59 06/12/16 06:11 50 MCG Magnesium Oxide (Mag-Ox Tab) 400 mg MoWeFr@0900 PO 06/09/16 09:00 07/09/16 08:59 06/11/16 09:19 400 MG Metoprolol Succinate (Toprol Xl Tab) 25 mg DAILY PO 06/08/16 09:00 07/08/16 08:59 06/12/16 08:04 25 MG Ferrous Sulfate (Feosol Tab) 325 mg QAM PO 06/08/16 09:00 07/08/16 08:59 06/12/16 08:02 325 MG Pantoprazole Sodium (Protonix Tab) 40 mg QAM PO 06/08/16 09:00 07/08/16 08:59 06/12/16 07:58 40 MG Miscellaneous (Fentanyl Patch Remove & Waste) 1 ea Q3D@1659 N/A 06/07/16 16:59 07/07/16 16:58 06/10/16 16:32 1 EA Miscellaneous Information (Check Fentanyl Patch Placement) 1 ea QS N/A 06/08/16 00:00 07/08/16 00:00 06/12/16 08:18 1 EA Miscellaneous (Fentanyl Patch Remove & Waste) 1 ea Q3D@1659 N/A 06/07/16 16:59 07/07/16 16:58 06/10/16 16:33 1 EA Miscellaneous Information (Check Fentanyl Patch Placement) 1 ea QS N/A 06/08/16 00:00 07/08/16 00:00 06/12/16 08:17 1 EA Doxycycline Hyclate 100 mg 100 mg BID PO 06/08/16 21:00 06/14/16 20:59 06/12/16 07:55 100 MG Ceftriaxone Sodium/Dextrose (Rocephin Inj/ Dextrose Add-[place] 50ML) 50 ml @ 100 mls/hr Q24H IV 06/08/16 14:00 06/15/16 13:59 06/10/16 14:00 100 MLS/HR Guaifenesin (Robitussin Sugar Free Syrup) 100 mg Q6H PRN PO 06/09/16 03:45 07/09/16 03:44 06/12/16 08:04 100 MG Heparin Sodium (Porcine) (Heparin Sq 5000 Unit/0.5ml) 5,000 unit Q12 SQ 06/11/16 09:00 07/11/16 08:59 06/12/16 08:05 5,000 UNIT Benzonatate (Tessalon Perles Cap) 100 mg TID PRN PO 06/11/16 10:00 07/11/16 09:59 06/12/16 07:55 100 MG Ipratropium [place] (Atrovent 0.02% 0.5MG/2.5ML Neb) 0.5 mg Q6R INH 06/11/16 12:00 07/11/16 11:59 06/12/16 06:50 0.5 MG Levalbuterol (Xopenex 1.25MG/ 0.5ML Neb) 1.25 mg Q6R INH 06/11/16 12:00 07/11/16 11:59 06/12/16 06:50 1.25 MG Furosemide (Lasix Tab) 40 mg BID PO 06/11/16 21:00 07/11/16 20:59 06/12/16 07:57 40 MG
[2016-06-12] MEDS ORDERED: GUAIFENESIN 600 MG TABCR PO ONE (10:15)
--- NOTE | 2016-06-12 10:34 | CARDIOLOGY PROGRESS NOTE ---
DATE: 06/12/2016 DATE: 06/12/2016. The patient seen and examined. Chart, medications, telemetry reviewed. OBJECTIVE: VITAL SIGNS: Heart rate is 78, blood pressure 148/79. HEAD, EYES, EARS, NOSE, AND THROAT EXAMINATION: Normocephalic, atraumatic. NECK: There is no jugular venous distention. LUNGS: Reveal scattered coarse rhonchi at the right base. CARDIOVASCULAR EXAMINATION: Regular. There is no S3 gallop. ABDOMEN: Soft, nontender. EXTREMITIES: Without cyanosis or clubbing. No peripheral edema. LABORATORY DATA: White cell count is 9.9, hemoglobin is 10.3. Sodium is 140, potassium 3.9, chloride is 100, bicarbonate is 30, BUN is 23, creatinine is 1.1. IMPRESSION: An 85-year-old female with severe coronary artery disease admitted with pneumonia gradually improving. Back on oral diuretic at 40 mg twice per day, noting home dose was slightly higher. Will follow during clinical course. May need to resume usual dosing of 80 b.i.d.
[2016-06-12] MEDS: CEFTRIAXONE SOD INJ 1 GM in DEXTROSE 5% ADD-VANTAGE 50ML 50 ML IV SCH (14:07)
[2016-06-12] MEDS ORDERED: NURSING VERBAL MED ORDER ONE (19:00)
[2016-06-12] MEDS ORDERED: COUGH DROP (SUGAR FREE) LOZ 24 LOZ/1 BOX PO PRN (19:30)
[2016-06-12] MEDS: GUAIFENESIN 600 MG TABCR PO SCH (19:58)
[2016-06-12] MEDS: ACETAMINOPHEN 325 MG TAB PO PRN (21:50)
[2016-06-13] VITALS (8 sets, daily range): BP systolic 121–144; BP diastolic 74–83; PULSE 78–84; TEMP 36.5–36.7; O2SAT 86–97
[2016-06-13] MEDS: LEVALBUTEROL 1.25MG/0.5ML NEB INH SCH ×3 (01:49→14:36)
[2016-06-13] MEDS: IPRATROPIUM BROMIDE NEB SOLN 0.02% 2.5 ML VIAL INH SCH ×3 (01:49→14:36)
[2016-06-13] MEDS: LEVOTHYROXINE 50 MCG TAB PO SCH (05:39)
[2016-06-13 06:58] LABS: HEMATOCRIT 32.1 % (37-47); MEAN CELL VOLUME 98.5 fL (80-100); MEAN CORPUSCULAR HEMOGLOBIN 31.6 pg (25-34); MEAN CORPUSCULAR HGB CONC 32.1 g/dl (32-36); MEAN PLATELET VOLUME 9.5 fL (7.4-10.4); PLATELET COUNT 243 K/uL (130-400); RED BLOOD COUNT 3.26 M/uL (4.2-5.4); WHITE BLOOD COUNT 7.45 K/uL (4.8-10.8)
[2016-06-13 07:33] LABS: BUN/CREATININE RATIO 17.5 (10-20); CALCIUM 9.3 mg/dl (8.5-10.1); CREATININE 1.2 mg/dl (0.60-1.20); POTASSIUM 4.2 mmol/L (3.5-5.1)
[2016-06-13] MEDS: CHECK FENTANYL PATCH PLACEMENT SCH ×4 (08:02→16:26)
[2016-06-13] MEDS: FERROUS SULFATE 325 MG TAB PO SCH (08:34)
[2016-06-13] MEDS: ASPIRIN 81 MG ECTAB PO SCH (08:34)
[2016-06-13] MEDS: ISOSORBIDE MONONITRATE 30 MG TABCR PO SCH (08:35)
[2016-06-13] MEDS: FUROSEMIDE 20 MG TAB PO SCH (08:36)
[2016-06-13] MEDS: ATORVASTATIN 40 MG TAB PO SCH (08:36)
[2016-06-13] MEDS: MAGNESIUM OXIDE 400 MG TAB PO SCH (08:37)
[2016-06-13] MEDS: GABAPENTIN 400 MG CAP PO SCH (08:38)
[2016-06-13] MEDS: CLOPIDOGREL BISULFATE 75 MG TAB PO SCH (08:38)
[2016-06-13] MEDS: GUAIFENESIN 600 MG TABCR PO SCH (08:38)
[2016-06-13] MEDS: PANTOprazole SOD 40 MG TAB PO SCH (08:40)
[2016-06-13] MEDS: DOXYCYCLINE HYCLATE 100 MG CAP PO SCH (08:41)
[2016-06-13] MEDS: CALCITRIOL 0.25 MCG CAP PO SCH (08:41)
[2016-06-13] MEDS: CHOLECALCIFEROL 1000 INTER.UNIT TAB PO SCH (08:42)
[2016-06-13] MEDS: METOPROLOL SUCC 25MG EXT REL TAB PO SCH (08:42)
[2016-06-13] MEDS: CITALOPRAM 20 MG TAB PO SCH (08:43)
[2016-06-13] MEDS: ALLOPURINOL 100 MG TAB PO SCH (08:48)
[2016-06-13] MEDS: HEPARIN SOD 5000 UNIT/0.5 ML CARP SQ SCH (08:55)
[2016-06-13] MEDS: ACETAMINOPHEN 325 MG TAB PO PRN (12:31)
[2016-06-13] MEDS: CEFTRIAXONE SOD INJ 1 GM in DEXTROSE 5% ADD-VANTAGE 50ML 50 ML IV SCH (14:21)
--- NOTE | 2016-06-13 15:28 | Progress Note ---
Medicine Progress Note Date & Time of Visit: Jun 13, 2016 at 15:20. Subjective patient seen resting in bed, comfortable, bright and alert, in good spirits states her breathing is much better coughing less no chest pain, dizziness, palpitations had some nausea this AM but improved otherwise, states she feels improved overall and is ready to return home Objective Last 8 Hrs Date Time Temp Pulse Resp B/P Pulse Ox O2 Delivery O2 Flow Rate FiO2 06/13/16 15:02 36.5 80 16 86 Room Air 06/13/16 14:37 80 16 86 Room Air 06/13/16 08:00 Room Air 06/13/16 07:44 36.5 78 20 144/83 94 Physical Exam: General- oriented x 3, not in distress, speaks in sentences with no effort/ accessory muscle use neck- no JVD Lungs- mild rales left base, no wheezes, good air entry Heart- normal rate, regular rhythm; no murmurs Abdomen- normal bowel sounds, soft, nontender Extremities- no pretibial edema, no calf tenderness Neuro- alert, oriented x 2 no gross deficits Skin- warm & dry Laboratory Results: Last 24 Hours Test 06/13/16 06:40 White Blood Count 7.45 K/uL Red Blood Count 3.26 M/uL Hemoglobin 10.3 g/dL Hematocrit 32.1 % Mean Corpuscular Volume 98.5 fL Mean Corpuscular Hemoglobin 31.6 pg Mean Corpuscular Hemoglobin Concent 32.1 g/dl RDW Standard Deviation 54.5 fL RDW Coefficient of Variation 15.7 % Platelet Count 243 K/uL Mean Platelet Volume 9.5 fL Activated Partial Thromboplast Time 27.0 SECONDS Partial Thromboplastin Ratio 1.0 Sodium Level 140 mmol/L Potassium Level 4.2 mmol/L Chloride Level 102 mmol/L Carbon Dioxide Level 30 mmol/L Anion Gap 8.0 mmol/L Blood Urea Nitrogen 21 mg/dl Creatinine 1.20 mg/dl Est Creatinine Clear Calc Drug Dose 29.5 ml/min Estimated GFR () 47.7 Estimated GFR (Non- 41.2 BUN/Creatinine Ratio 17.5 Random Glucose 102 mg/dl Calcium Level 9.3 mg/dl Assessment & Plan 85 year old female with history of CAD s/p Stent placement, CHF, HTN, CKD presenting with cough. Possible Right Sided Pneumonia vs. Acute Bronchitis - gradually improved -Influenza antigen & influenza PCR are negative -Blood cultures negative so far - mostly >90% on room air, occasionally 88-89% when I checked myself - finished Rocephin (Day # 6) & Doxycycline (Day # 7) Nebs, Mucinex - discharge on: Nebs q6h and q4hPRN Tussionex bid PRN Chronic Systolic CHF EF 30-34% on TTE Dec 2014. lasix held initially for acute renal failure lasix 40mg BID restarted 06/11/16 resume usual Lasix 80mg BID dose Cardiology was consulted NSTEMI: Clinically & hemodynamically stable. Known history of CAD s/p stenting Last catheterization at [facility] [place] in Dec 2014- had multivessel disease, was poor candidate for CABG and PCI felt to be very high risk, medical management recommended -EKG- new ST depression in I and aVL, ST elevation in III, T wave inversion in III, aVF, V2-V5 -Serial Troponin show 22.4 --> 23.0 --> 16.1--> 10.3. evaluated by Cosmetic Surgeon Dr. Fofana initially given IV heparin Cosmetic Surgeon recommended only medical management -Continue Aspirin, Isosorbide, beta josefa, statin, Plavix -SOPHIA-I intolerance as per records GURPREET On CKD Stage III - Resolved Creat is 1.4 Chronic Anemia: Hg is 9.6; baseline 9's-11's. Denies bleeding History HTN BP stable -Continue metoprolol Chronic Pain Continue Fentanyl patch and PRN hydrocodone-acetaminophen Hypothyroidism: Continue levothyroxine Ambulatory Dysfunction: PT/ OT: recommend return home DVT Prophylaxis: Heparin subcutaneous given Code Status: Full code per discussion with the patient on admission. Disposition: d/c home with home health ff up with Dr. Pierce next week Current Inpatient Medications: Current Inpatient Medications Medications (Trade) Dose Ordered Sig/Jeferson Route Start Time Stop Time Status Last Admin Dose Admin Acetaminophen (Tylenol Tab) 650 mg Q4H PRN PO 06/07/16 16:00 07/07/16 15:59 06/13/16 12:31 650 MG Ondansetron HCl (Zofran Inj) 4 mg Q6H PRN IV 06/07/16 16:00 07/07/16 15:59 06/13/16 12:25 4 MG Nitroglycerin (Nitrostat Tab) 0.4 mg UD PRN SL 06/07/16 16:00 07/07/16 15:59 Polyethylene (Miralax Powder Packet) 17 gm DAILY PRN PO 06/07/16 16:00 07/07/16 15:59 Allopurinol (Zyloprim Tab) 100 mg DAILY PO 06/08/16 09:00 07/08/16 08:59 06/13/16 08:48 100 MG Aspirin (Ecotrin Tab) 81 mg DAILY PO 06/08/16 09:00 07/08/16 08:59 06/13/16 08:34 81 MG Atorvastatin Calcium (Lipitor Tab) 80 mg DAILY PO 06/08/16 09:00 07/08/16 08:59 06/13/16 08:36 80 MG Calcitriol (Rocaltrol Cap) 0.25 mcg DAILY PO 06/07/16 17:00 07/07/16 16:59 06/13/16 08:41 0.25 MCG Cholecalciferol (Vitamin D Tab) 2,000 inter.unit DAILY PO 06/08/16 09:00 07/08/16 08:59 06/13/16 08:42 2,000 INTER.UNIT Citalopram Hydrobromide (celeXA TAB) 30 mg DAILY PO 06/08/16 09:00 07/08/16 08:59 06/13/16 08:43 30 MG Clopidogrel Bisulfate (plAVix TAB) 75 mg DAILY PO 06/08/16 09:00 07/08/16 08:59 06/13/16 08:38 75 MG Fentanyl (Duragesic Patch) 12 mcg Q3D@1700 TD 06/07/16 17:00 06/21/16 16:59 06/10/16 17:07 12 MCG Fentanyl (Duragesic Patch) 25 mcg Q3D@1700 TD 06/07/16 17:00 06/21/16 16:59 06/10/16 17:08 25 MCG Gabapentin (Neurontin Cap) 400 mg DAILY PO 06/08/16 09:00 07/08/16 08:59 06/13/16 08:38 400 MG Isosorbide Mononitrate (Imdur Ext Rel Tab) 30 mg QAM PO 06/08/16 09:00 07/08/16 08:59 06/13/16 08:35 30 MG Levothyroxine Sodium (Synthroid Tab) 50 mcg DAILYBB PO 06/08/16 06:00 07/08/16 05:59 06/13/16 05:39 50 MCG Magnesium Oxide (Mag-Ox Tab) 400 mg MoWeFr@0900 PO 06/09/16 09:00 07/09/16 08:59 06/13/16 08:37 400 MG Metoprolol Succinate (Toprol Xl Tab) 25 mg DAILY PO 06/08/16 09:00 07/08/16 08:59 06/13/16 08:42 25 MG Ferrous Sulfate (Feosol Tab) 325 mg QAM PO 06/08/16 09:00 07/08/16 08:59 06/13/16 08:34 325 MG Pantoprazole Sodium (Protonix Tab) 40 mg QAM PO 06/08/16 09:00 07/08/16 08:59 06/13/16 08:40 40 MG Miscellaneous (Fentanyl Patch Remove & Waste) 1 ea Q3D@1659 N/A 06/07/16 16:59 07/07/16 16:58 06/10/16 16:32 1 EA Miscellaneous Information (Check Fentanyl Patch Placement) 1 ea QS N/A 06/08/16 00:00 07/08/16 00:00 06/13/16 08:02 1 EA Miscellaneous (Fentanyl Patch Remove & Waste) 1 ea Q3D@1659 N/A 06/07/16 16:59 07/07/16 16:58 06/10/16 16:33 1 EA Miscellaneous Information (Check Fentanyl Patch Placement) 1 ea QS N/A 06/08/16 00:00 07/08/16 00:00 06/13/16 08:02 1 EA Doxycycline Hyclate 100 mg 100 mg BID PO 06/08/16 21:00 06/14/16 20:59 06/13/16 08:41 100 MG Ceftriaxone Sodium/Dextrose (Rocephin Inj/ Dextrose Add-[place] 50ML) 50 ml @ 100 mls/hr Q24H IV 06/08/16 14:00 06/15/16 13:59 06/13/16 14:21 100 MLS/HR Heparin Sodium (Porcine) (Heparin Sq 5000 Unit/0.5ml) 5,000 unit Q12 SQ 06/11/16 09:00 07/11/16 08:59 06/13/16 08:55 5,000 UNIT Benzonatate (Tessalon Perles Cap) 100 mg TID PRN PO 06/11/16 10:00 07/11/16 09:59 06/12/16 19:57 100 MG Ipratropium [place] (Atrovent 0.02% 0.5MG/2.5ML Neb) 0.5 mg Q6R INH 06/11/16 12:00 07/11/16 11:59 06/13/16 14:36 0.5 MG Levalbuterol (Xopenex 1.25MG/ 0.5ML Neb) 1.25 mg Q6R INH 06/11/16 12:00 07/11/16 11:59 06/13/16 14:36 1.25 MG Furosemide (Lasix Tab) 40 mg BID PO 06/11/16 21:00 07/11/16 20:59 06/13/16 08:36 40 MG Guaifenesin (Mucinex Contr Rel Tab) 600 mg Q12 PO 06/12/16 21:00 07/12/16 20:59 06/13/16 08:38 600 MG Menthol (Nice [place]) 1 rachel PRN PRN PO 06/12/16 19:30 07/12/16 19:29
[2016-06-13] MEDS ORDERED: GFNSR600 PO (15:46)
[2016-06-13] MEDS ORDERED: XPNINS1255 INH (15:46)
[2016-06-13] MEDS ORDERED: BENZ100C7 PO (15:46)
[2016-06-13] MEDS ORDERED: ATRINS INH (15:46)
[2016-06-13] MEDS ORDERED: HYDR-5688 PO (15:46)
--- NOTE | 2016-06-13 15:51 | Discharge Instructions ---
Discharge Instructions Date of Service Jun 13, 2016. Admission Reason for Admission: Nstemi (Non-St Elevated Myocardial Infarction) Discharge Discharge Diagnosis / Problem: ACUTE BRONCHITIS, PNEUMONIA Discharge Goals Goal(s): Diagnostic testing, Therapeutic intervention Activity Recommendations Activity Limitations: as noted below (NO HEAVY EXERTION UNTIL RE-EVALUATED BY PRIMARY CARE PHYSICIAN) USE OXYGEN 2 LITERS BY NASAL CANNULA AT ALL TIMES. PLEASE REVIEW YOUR NEW MEDICATION LIST AND FOLLOW INSTRUCTIONS CAREFULLY. CALL PRIMARY CARE PHYSICIAN OR RETURN TO ER IMMEDIATELY IF WITH RECURRENCE OF SYMPTOMS, FEVER, INCREASING SHORTNESS OF BREATH, COUGH. FOLLOW UP WITH DR. TING VALENTINO ON THURSDAY JUNE 16, 2016 AT 10:55 AM. Instructions / Follow-Up Instructions / Follow-Up Call your Primary Care doctor if any of the following symptoms or problems start or get worse: * Shortness of breath or difficulty breathing * Wake up at night short of breath * Chest pain * Cough * Swelling of your hands, feet, or legs * More fatigued or tired with your normal activity * Palpitations - sudden fast heart beats WEIGHT * Weigh yourself every morning after using the bathroom. * Use the same scale. * Wear the same amount of clothing. * Write your weight down on a chart. * Call your Primary Care doctor if you gain more than 2-3 pounds in 1-2 days. MEDICATIONS * Use this discharge instruction sheet for medication instructions. * Take your medications at the time your doctor ordered. * Do not skip a dose of your medicines. * If you miss a dose of medicine, take it as soon as possible, but DO NOT DOUBLE A DOSE. * Read your medicine information when you get home. * Know all of the side effects of your medicine. If in doubt, ask your pharmacist * Call your Primary Care doctor's office if you have any side effects. * Be sure all of your doctors know what medicine and herbs you take (including cold, flu, and herbal medicine). Take the following with you to your follow-up doctor appointments: * Weight Chart * Medication List * List of questions Do not drink excessive alcohol, beer or wine. Current Hospital Diet Patient's current hospital diet: AHA Diet (Heart Healthy) Discharge Diet Recommended Diet: AHA Diet (Heart Healthy) Fluid Restriction: 1500 ml (6 cups) Pending Studies Studies pending at discharge: yes List of pending studies: REPEAT BLOOD WORK (CBC AND PRP) Laboratory Results Lipid Panel Test 06/08/16 04:50 Range/Units Triglycerides Level 102 0-150 mg/dl Cholesterol Level 112 0-200 mg/dl HDL Cholesterol 46 mg/dl Cholesterol/HDL Ratio 2.4 LDL Cholesterol, Calculated 46 mg/dl Medical Emergencies . Who to Call and When: Call 911 or go to the Emergency Room if: * If at any time you feel your situation is an emergency * You have tightness or pain in your chest that does not go away with rest or Nitroglycerin * You are very short of breath even with rest . Non-Emergent Contact Non-Emergency issues call your: Primary Care Provider Call Non-Emergent contact if: you have a fever, your pain is not controlled, you have any medication questions . Past History Medical & Surgical History: (1) Spinal stenosis (2) Anemia (3) HTN (hypertension) (4) Dyslipidemia (5) Carotid stenosis (6) Hypothyroidism (7) Gout (8) History of breast cancer (9) Anemia (10) Chronic pain (11) CKD (chronic kidney disease), stage III (12) CAD (coronary artery disease) (13) H/O echocardiogram (14) Chronic systolic CHF (congestive heart failure) (15) NSTEMI (non-ST elevated myocardial infarction) (16) SOPHIA inhibitor intolerance (17) Acute renal failure (18) Hypoxia (19) History of appendectomy (20) History of total hip replacement (21) Status post carotid surgery (22) H/O total knee replacement (23) Hx of cataract surgery . "Provider Documentation" section prepared by Robin Purvis. VTE Core Measure Inpt VTE Proph given/why not?: Unfractionated heparin SQ [place] Drug Monitoring Program Search Results: patient reviewed within database
[2016-06-13] MEDS ORDERED: HYDR1SUS2 PO (16:04)
[2016-06-13] MEDS: FENTANYL 12 MCG/HR TDSY TD SCH (16:28)
[2016-06-13] MEDS: FENTANYL 25 MCG/HR TDSY TD SCH (16:28)
[2016-06-13] MEDS: FENTANYL PATCH REMOVE & WASTE SCH ×2 (16:45)
--- NOTE | 2016-06-14 19:00 | Discharge Summary ---
Discharge Summary Date of Service Jun 14, 2016. Discharge Summary Admission Date: Jun 07, 2016 at 15:57 Discharge Date: Jun 13, 2016 Discharge Disposition: Home with services Principal Diagnosis: Possible Right Sided Pneumonia vs. Acute Bronchitis Secondary Diagnoses/Problems: Please refer to hospital course below. Consultations: [facility] Dr. Fofana Pending Studies/Follow-Up: Please refer to hospital course below. Medication Reconciliation New Medications: Chlorphenir/Hydrocod Polistir (Tussionex) Liqcr 2.5 ML PO BID PRN for Cough, #50 ML Hydrocodone/Acetaminophen 5MG/325MG (Cotopaxi 5MG/325MG) Tab 1 TABLET PO Q6H PRN for Pain, #10 TAB 0 Refills Benzonatate (Benzonatate) 100 Mg Cap 100 MG PO TID PRN for cough for 7 Days, #20 CAP 0 Refills Ipratropium Lupton (Ipratropium Lupton) 0.5 Mg/2.5 Ml Nebu 0.5 MG INH Q6R for 7 Days, #30 UNITS 2 Refills may use every 2-4 hours as needed for shortness of breath Levalbuterol (Levalbuterol) 1.25 Mg/0.5 Ml Nebu 1.25 MG INH Q6R for 7 Days, #30 UNITS 2 Refills may use every 2-4 hours as needed for shortness of breath Continued Medications: Albuterol Hfa (Ventolin Hfa) 200 Puffs/89226 Mcg Aers 2 PUFF INH BID PRN for SOB/Wheezing Allopurinol (Zyloprim) 300 Mg Tab 300 MG PO DAILY, TAB Aspirin (Aspirin Ec) 81 Mg Tab 81 MG PO DAILY Atorvastatin (Lipitor) 80 Mg Tab 80 MG PO DAILY, TAB Calcitriol (Calcitriol) 0.25 Mcg Cap 1 CAP PO QD Cholecalciferol (Vitamin D 1000 Unit) 1,000 Unit Cap 2000 INTER.UNIT PO DAILY, CAP Citalopram Hydrobromide (Citalopram Hydrobromide) 20 Mg Tab 30 TAB PO DAILY for 90 Days, TAB Clopidogrel (Plavix) 75 Mg Tab 75 MG PO DAILY, 0 Refills Fentanyl (Fentanyl) 12 Mcg Tdsy 12 MCG TD CQ72HR, #10 Fentanyl (Fentanyl) 25 Mcg Tdsy 25 MCG TD CQ72HR, #10 Ferrous Sulfate (Iron) 325 Mg Tab 1 TAB PO QD Furosemide (Lasix) 80 Mg Tab 1 TAB PO BID for 90 Days, #180 TAB 3 Refills Gabapentin (Neurontin) 400 Mg Cap 400 MG PO TID, CAP Isosorbide Mononitrate Ext Rel (Imdur Ext Rel) 60 Mg Ertab 30 MG PO QAM Levothyroxine Sodium (Synthroid) 50 Mcg Tab 50 MCG PO DAILY, TAB Magnesium Oxide (Mag-Ox) 400 Mg Tab 400 MG PO //, TAB Metoprolol Succ (Toprol Xl) (Toprol-Xl) 25 Mg Tabcr 25 MG PO DAILY, #30 TAB Omeprazole (Prilosec) 40 Mg Cap 40 MG PO DAILY, CAP Admission Information HPI (per Admitting provider): This is an 85 year old female with PMH of CAD s/p stents, chronic systolic CHF, chronic oxygen use, HTN, CKD, and other problems listed below who was sent to the ED for productive cough with hypoxia. Pt has been ill for 2 weeks with "deep " cough productive of white sputum. Pt has associated sore throat and mild SOB. Reports improvement after neb treatment in clinic and ER today. Had central non- radiating chest pain several days ago at night which she attributes to coughing. No chest pain today. Pt was seen by Dr. Ting Valetnino today and noted to have oxygen sat in 80s and was sent to the ER. Pt is on home oxygen 1 liter during sleep. Pt also has recent ambulatory dysfunction with multiple recent falls. Has chronic right hip pain. No fevers, chills diaphoresis, dizziness, rhinorrhea, ear ache, MAYER, palpitations, abdominal pain, nausea, vomiting, diarrhea, urinary changes, edema, weight gain, calf pain, abnormal bleeding. Had a sick contact with cough at [facility]. No recent med changes, antibiotics, hospitalizations. No hx of lung disease. Pt follows with [facility] Cal[facility]oun for cardiology. Physical Exam (per Admitting): General Appearance: WD/WN, no apparent distress, + obese, + pertinent finding (pleasant alert 85 year old female, not in distress, and son-in- law at bedside) Head: normocephalic, atraumatic Eyes: normal inspection, PERRL, sclerae normal ENT: normal ENT inspection, hearing grossly normal, TMs normal, pharynx normal, + pertinent finding (no sinus tenderness) Neck: supple, no JVD, trachea midline Respiratory/Chest: no respiratory distress, no accessory muscle use, + rhonchi (diffuse rhonchi), + pertinent finding (no wheezing) Cardiovascular: regular rate, rhythm, no murmur Abdomen/GI: normal bowel sounds, soft Extremities/Musculoskelatal: no calf tenderness, no pedal edema, + pertinent finding (no pain on ROM of right hip) Neurologic/Psych: alert, normal mood/affect, oriented x 3, + pertinent finding (grossly nonfocal) Skin: normal color, warm/dry Hospital Course 85 year old female with history of CAD s/p Stent placement, CHF, HTN, CKD presenting with cough. Possible Right Sided Pneumonia vs. Acute Bronchitis -Influenza antigen & influenza PCR are negative -Blood cultures negative - gradually improved - finished Rocephin (Day # 6) & Doxycycline (Day # 7) given Nebs, Mucinex - discharge on: Nebs q6h and q4hPRN Tussionex bid PRN (discussed with daughter re: proper measurement of medication) Chronic Systolic CHF EF 30-34% on TTE Dec 2014. lasix held initially for acute renal failure lasix 40mg BID restarted 06/11/16 resume usual Lasix 80mg BID dose Cardiology was consulted - monitor volume status as outpatient titrate Lasix accordingly NSTEMI: Clinically & hemodynamically stable. Known history of CAD s/p stenting -EKG- new ST depression in I and aVL, ST elevation in III, T wave inversion in III, aVF, V2-V5 - Elevated Troponins show 22.4 --> 23.0 --> 16.1--> 10.3. evaluated by [facility] Dr. Fofana initially given IV heparin [facility] recommended only medical management -Continue Aspirin, Isosorbide, beta josefa, statin, Plavix -SOPHIA-I intolerance as per records GURPREET On CKD Stage III - Resolved Creat is 1.4 Chronic Anemia: Hg is 9.6; baseline 9's-11's. Denies bleeding History of HTN BP stable -Continue metoprolol Chronic Pain Continue Fentanyl patch and PRN hydrocodone-acetaminophen Hypothyroidism: Continue levothyroxine Ambulatory Dysfunction: PT/ OT: recommend return home DVT Prophylaxis: Heparin subcutaneous given Disposition: d/c home with home health ff up with Dr. Valentino next week Total time spent on discharge = 45 minutes This includes examination of the patient, discharge planning, medication reconciliation, and communication with other providers. Discharge Instructions Discharge Instructions Date of Service Jun 13, 2016. Admission Reason for Admission: Nstemi (Non-St Elevated Myocardial Infarction) Discharge Discharge Diagnosis / Problem: ACUTE BRONCHITIS, PNEUMONIA Discharge Goals Goal(s): Diagnostic testing, Therapeutic intervention Activity Recommendations Activity Limitations: as noted below (NO HEAVY EXERTION UNTIL RE-EVALUATED BY PRIMARY CARE PHYSICIAN) USE OXYGEN 2 LITERS BY NASAL CANNULA AT ALL TIMES. PLEASE REVIEW YOUR NEW MEDICATION LIST AND FOLLOW INSTRUCTIONS CAREFULLY. CALL PRIMARY CARE PHYSICIAN OR RETURN TO ER IMMEDIATELY IF WITH RECURRENCE OF SYMPTOMS, FEVER, INCREASING SHORTNESS OF BREATH, COUGH. FOLLOW UP WITH DR. TING VALENTINO ON THURSDAY JUNE 16, 2016 AT 10:55 AM. Instructions / Follow-Up Instructions / Follow-Up Call your Primary Care doctor if any of the following symptoms or problems start or get worse: * Shortness of breath or difficulty breathing * Wake up at night short of breath * Chest pain * Cough * Swelling of your hands, feet, or legs * More fatigued or tired with your normal activity * Palpitations - sudden fast heart beats WEIGHT * Weigh yourself every morning after using the bathroom. * Use the same scale. * Wear the same amount of clothing. * Write your weight down on a chart. * Call your Primary Care doctor if you gain more than 2-3 pounds in 1-2 days. MEDICATIONS * Use this discharge instruction sheet for medication instructions. * Take your medications at the time your doctor ordered. * Do not skip a dose of your medicines. * If you miss a dose of medicine, take it as soon as possible, but DO NOT DOUBLE A DOSE. * Read your medicine information when you get home. * Know all of the side effects of your medicine. If in doubt, ask your pharmacist * Call your Primary Care doctor's office if you have any side effects. * Be sure all of your doctors know what medicine and herbs you take (including cold, flu, and herbal medicine). Take the following with you to your follow-up doctor appointments: * Weight Chart * Medication List * List of questions Do not drink excessive alcohol, beer or wine. Current Hospital Diet Patient's current hospital diet: AHA Diet (Heart Healthy) Discharge Diet Recommended Diet: AHA Diet (Heart Healthy) Fluid Restriction: 1500 ml (6 cups) Pending Studies Studies pending at discharge: yes List of pending studies: REPEAT BLOOD WORK (CBC AND PRP) Laboratory Results Lipid Panel Test 06/08/16 04:50 Range/Units Triglycerides Level 102 0-150 mg/dl Cholesterol Level 112 0-200 mg/dl HDL Cholesterol 46 mg/dl Cholesterol/HDL Ratio 2.4 LDL Cholesterol, Calculated 46 mg/dl Medical Emergencies . Who to Call and When: Call 911 or go to the Emergency Room if: * If at any time you feel your situation is an emergency * You have tightness or pain in your chest that does not go away with rest or Nitroglycerin * You are very short of breath even with rest . Non-Emergent Contact Non-Emergency issues call your: Primary Care Provider Call Non-Emergent contact if: you have a fever, your pain is not controlled, you have any medication questions . Past History Medical & Surgical History: (1) Spinal stenosis (2) Anemia (3) HTN (hypertension) (4) Dyslipidemia (5) Carotid stenosis (6) Hypothyroidism (7) Gout (8) History of breast cancer (9) Anemia (10) Chronic pain (11) CKD (chronic kidney disease), stage III (12) CAD (coronary artery disease) (13) H/O echocardiogram (14) Chronic systolic CHF (congestive heart failure) (15) NSTEMI (non-ST elevated myocardial infarction) (16) SOPHIA inhibitor intolerance (17) Acute renal failure (18) Hypoxia (19) History of appendectomy (20) History of total hip replacement (21) Status post carotid surgery (22) H/O total knee replacement (23) Hx of cataract surgery . "Provider Documentation" section prepared by Robin Purvis. VTE Core Measure Inpt VTE Proph given/why not?: Unfractionated heparin SQ [place] Drug Monitoring Program Search Results: patient reviewed within database
== END 2016-06-13 18:17 | disposition home health service (06) | DRG 280 ==
LOC: ENRESERVTM → ENRESERVDT → C.EDB 13:00 → C.2E 15:57 → C.MS2W 06-12 11:46
PROVIDERS: ADMIT Hospitalist; ATTEND Internal Medicine
DX: I21.4 Non-ST elevation (NSTEMI) myocardial infarction (principal); J18.9 Pneumonia, unspecified organism; I13.0 Hypertensive heart and chronic kidney disease with heart failure and stage 1 through stage 4 chronic kidney disease, or unspecified chronic kidney disease; N17.9 Acute kidney failure, unspecified; I50.22 Chronic systolic (congestive) heart failure; Z68.31 Body mass index [BMI] 31.0-31.9, adult; Z99.81 Dependence on supplemental oxygen; Z95.5 Presence of coronary angioplasty implant and graft; D64.9 Anemia, unspecified; I25.2 Old myocardial infarction; G89.29 Other chronic pain; N18.3 Chronic kidney disease, stage 3 (moderate); E78.5 Hyperlipidemia, unspecified; M10.9 Gout, unspecified; Z85.3 Personal history of malignant neoplasm of breast; E03.9 Hypothyroidism, unspecified; Z96.653 Presence of artificial knee joint, bilateral; Z96.641 Presence of right artificial hip joint; Z80.9 Family history of malignant neoplasm, unspecified; Z82.49 Family history of ischemic heart disease and other diseases of the circulatory system; Z91.041 Radiographic dye allergy status; Z88.5 Allergy status to narcotic agent; Z79.82 Long term (current) use of aspirin; Z79.899 Other long term (current) drug therapy; Z79.02 Long term (current) use of antithrombotics/antiplatelets; E66.9 Obesity, unspecified; R26.9 Unspecified abnormalities of gait and mobility; I25.5 Ischemic cardiomyopathy; Z98.49 Cataract extraction status, unspecified eye; Z90.49 Acquired absence of other specified parts of digestive tract; I45.10 Unspecified right bundle-branch block; I25.10 Atherosclerotic heart disease of native coronary artery without angina pectoris; I08.0 Rheumatic disorders of both mitral and aortic valves

== ENCOUNTER 2016-10-23 12:34 | Emergency (ER) | payer OTHER ==
[~2016-10-23 12:34] MED LIST changes: -ASCO-63 PO; -ATEN-173 PO; +ATRINS INH; +BENZ100C7 PO; +DRGTP12 TD; -FENT25DI2 TD; +FERR1TAB23 PO; -FERR325T51 PO; +FNTTP25 TD; +HYDR-5688 PO; +HYDR1SUS2 PO; -LISI10TA PO; -OMEP40CA PO; +OMEP40CA41 PO; -SENNTAB23 PO; +VNTHFA/IN INH; +XPNINS1255 INH
--- NOTE | 2016-10-23 12:34 | EMERGENCY ROOM VISIT NOTE ---
History Report prepared by Rosa Isela: Shine Gregory Under the Supervision of: Dr. Rob Mascorro M.D. First contact with patient: 12:33 Stated Complaint: CARDIAC ARREST History of Present Illness The patient is an 87 year old female who presents to the Emergency Room via EMS for sudden cardiac arrest that started around an hour ago. Per EMS, the patient was sitting on her couch in her home, and proceeded to complain of chest pain which she described as a pressure to her . The patient's then called the patient's daughter, who called an ambulance. The patient has been noted to be unresponsive for around 30 minutes now. Per EMS, the patient was shocked back into an "organized rhythm" but without pulse once on route. EMS states that the patient has been in a rhythmic narrow complex bradycardic PEA. The patient last had an epi 3 minutes ago, and just finished her bicarb, but has not yet received calcium yet. History limited secondary to patient's cardiac arrest. Source of History: EMS History Limited By: cardiac arrest Onset: Around an hour ago Position: other (heart ) Quality: other (cardiac arrest) Timing: other (sudden) Associated Symptoms: + chest pain (pressure) Note: Associated symptoms: Became unresponsive. Shocked back into "organized rhythm" once. Review of Systems See HPI for pertinent positives and negatives. A total of ten systems were reviewed and were otherwise negative. Family History Family history omitted secondary to patient's advanced age. Social History Marital Status: Housing Status: lives with family Occupation Status: retired Physical Exam Vital Signs HR 0 BP 0/0 RR: manual ventilation Physical Exam GENERAL: GCS 3T (intubated) HENT: intubated, NC/AT EYES: fixed, 2mm. No corneal reflex. NECK: No JVD, no step-offs RESPIRATORY: rhonchorus BS throughout on manual ventilation. CARDIAC: pulessless. Extremities cool. ABDOMEN: Soft, non-distended. RECTAL: Deferred. MUSCULOSKELETAL: RUPESH CPR in progress. No joint edema. LOWER EXTREMITIES: No edema. No discoloration. Left distal tibial I/O NEURO: GCS 3T. Fixed 2mm pupils. Absent corneal and ocular cephalic reflex. SKIN: Cool, moist. No jaundice noted. Medical Decision & Procedures ED Course 1235: The patient was evaluated in room A1. A limited history and physical exam was performed. Medical Decision I reviewed the patient's past medical history, medications, and the nursing notes as described above. Patient arrives to emergency department after a cardiac arrest per history of present illness. On arrival the patient had been in PE arrest for approximately 60 minutes since onset. Initial rhythm when found by EMS was a bradycardic PA. On arrival the patient had been given epi 4, and 1 amp of bicarbonate with Rupesh CPR in progress. RSI in the field. On arrival patient was given epinephrine and subsequent rhythm check still showed PEA arrest. A second round was attempted without any change in the patient's condition and with asystole. Considering the patient's age and comorbidities and prolonged PEA/asystolic arrest which has poor prognosis, in this setting treatment was stopped. The patient had no pulses or spontaneous respirations. Pupils were fixed with absent corneal and oculocephalic reflex. The patient's was pronounced at 12:42 PM. Family was updated in the family room. Impression Primary Impression: Cardiac arrest Critical Care I have personally spent greater than 80 minutes of critical care time in the direct management of this patient. This includes bedside care, interpretation of diagnostic studies, and testing, discussion with consultants, patient, and family members, and other required patient management activities. This 80 minutes is in excess of all separately billable procedures. Scribe Attestation The scribe's documentation has been prepared under my direction and personally reviewed by me in its entirety. I confirm that the note above accurately reflects all work, treatment, procedures, and medical decision making performed by me.
[2016-10-23] MEDS ORDERED: NALOXONE HCL INJ 0.4 MG/1 ML VIAL/CARP IV ONE (12:40)
[2016-10-23] MEDS ORDERED: SODIUM CHLORIDE 0.9% 10ML FLUSH IV ONE (12:40)
[2016-10-23 12:42] VITALS: BP 119/71; PULSE 76; TEMP 36.5; O2SAT 98; BMI 15.0
== END 2016-10-23 14:50 | disposition expired ==
LOC: MERGE 12:39 → C.ED 12:39 → EDBD 12:39 → C.ED 14:50
DX: I46.9 Cardiac arrest, cause unspecified (principal)